=== PATIENT | male | born 1935 | race Caucasian/White ===

== ENCOUNTER 2017-10-26 16:42 | Emergency (ER) | payer OTHER, BC ==
[~2017-10-26] VITALS: Ht 165.1 cm; Wt 79.8 kg
[~2017-10-26 16:42] MED LIST: ASPI1TAB83 PO; CHOL1CAP57 PO; CLON1TAB3 PO; INSDGI SC; LEVO175T3 PO; LOSARTAN PO; NVLGI SC; SIMV80TA5 PO; TAMS0.4C59 PO
[2017-10-26 16:52] VITALS: TEMP 37; Ht 165.1 cm; Wt 79.8 kg
[2017-10-26] MEDS ORDERED: SODIUM CHLORIDE 0.9% 1000ML 1,000 ML IV STA (17:01)
--- NOTE | 2017-10-26 17:05 | EMERGENCY ROOM VISIT NOTE ---
History Report prepared by Kayla: Kalia Trevizo Under the Supervision of: Dr. Andres Curtis M.D. First contact with patient: 16:51 Chief Complaint: HYPOGLYCEMIA Stated Complaint: HYPOGLYCEMIA History of Present Illness The patient is an 81 year old white male with a past medical history of DM, HTN , HLD, hypothyroidism who presents to the ED with a cc of consuming too much short acting insulin 3.5 hours ago. Pt typically takes 15 units of insulin after lunch. He states he was trying to take enough to metabolize his [employer] Patient reports he was driving a car when his symptoms began. He notes he pulled into the [employer] station and then lost consciousness. He notes the next thing he remembers he was in the ambulance. Positive weakness, lightheadedness, unconscious when EMS arrived, taking a baby aspirin once a day, hitting his head. Negative checking blood sugar, changes in diet, changes in medication, back pain. Per EMS, the patient's blood sugar was 20. They note the patient was given Amp D50, and his blood sugar zay to 150. Source of History: patient Onset: 3.5 hours ago Position: other (global) Quality: other (taking too much insulin) Modifying Factors (Relieving): other (Amp D50) Associated Symptoms: + LOC, + weakness, No back pain Note: Associated symptoms: hitting his head, lightheadedness Denies: changes in diet, changes in medication, checking his blood sugar Review of Systems See HPI for pertinent positives and negatives. A total of ten systems were reviewed and were otherwise negative. Past Medical & Surgical Medical Problems: (1) Diabetes mellitus (2) HLD (hyperlipidemia) (3) HTN (hypertension) (4) Hypothyroidism Family History Diabetes mellitus FHx: gallbladder disease Social History Drug Use: none Marital Status: Housing Status: lives with family Current/Historical Medications Scheduled Aspirin (Aspirin), 81 MG PO DAILY Cholecalciferol (Vitamin D3), 1,000 UNITS PO Q2D Insulin Aspart (Novolog), 0 SC ACHS Insulin Glargine (Lantus), 35 UNITS SC QPM Levothyroxine Sodium (Levothyroxine Sodium), 175 MCG PO DAILY Simvastatin (Zocor), 40 MG PO QPM Tamsulosin Hcl (Flomax), 0.4 MG PO DAILY [Hydrochlorothiazide], 1 TAB PO QAM [Losartan], 1 TABLET PO DAILY Scheduled PRN Clonazepam (Klonopin), 1 MG PO HS PRN Allergies Coded Allergies: Lisinopril (Verified Adverse Reaction, Unknown, COUGH, 10/26/17) Physical Exam Vital Signs Date Time Temp Pulse Resp B/P (MAP) Pulse Ox O2 Delivery O2 Flow Rate FiO2 10/26/17 20:28 72 18 144/88 94 10/26/17 19:26 69 16 151/80 97 Room Air 10/26/17 17:50 81 16 139/72 94 Room Air 10/26/17 17:20 98 Room Air 10/26/17 16:52 37.0 68 16 170/83 98 Room Air Physical Exam GENERAL: Awake, alert, well-appearing, NAD HENT: Normocephalic, atraumatic. EYES: Normal conjunctiva. Sclera non-icteric. NECK: Supple. No nuchal rigidity. FROM. No midline c-spine TTP. RESPIRATORY: CTAB, no rhonchi, wheezing, crackles CARDIAC: RRR, no MRG ABDOMEN: Soft, NTND, BS+, Two small abdominal bruises (consistent with prior insulin injection) MSK: No chest wall TTP, no LE edema. Mild left thigh pain. NEURO: CN 2-12 intact, 5/5 upper and lower extremity strength, no dysmetria, no drift, good finger to nose, no sensory deficits. SKIN: No rash or jaundice noted. Medical Decision & Procedures ER Provider Diagnostic Interpretation: Radiology results as stated below per my review and radiologist interpretation: CT SCAN OF THE BRAIN WITHOUT IV CONTRAST CLINICAL HISTORY: Change in mental status. COMPARISON STUDY: No priors. TECHNIQUE: Unenhanced axial CT scan of the brain is performed from the vertex to the skull base. A dose lowering technique was utilized adhering to the principles of ALARA. CT DOSE: 1461.95 mGy.cm FINDINGS: Brain parenchyma: There are age-related involutional changes noting mild subcortical and periventricular microangiopathic change. There is no hemorrhage, mass effect, or evidence of acute territorial ischemia by CT criteria. Palacios-white matter is preserved. No extra-axial fluid collection is seen. Ventricles, sulci, cisterns: Prominent secondary to involutional change. Intracranial vasculature: There is atherosclerotic calcification of the cavernous carotid and vertebral arteries. Calvarium: Unremarkable. Sinuses and mastoids: The visualized paranasal sinuses are clear. The mastoid air cells are well pneumatized. Orbits: The bony orbits are grossly intact. There are bilateral ocular lens implants. IMPRESSION: There is no hemorrhage, mass effect, or evidence of acute territorial ischemia by CT criteria. Electronically signed by: Tanvir Field M.D. 10/26/2017 5:55 PM Dictated Date/Time: 10/26/2017 5:53 PM SINGLE VIEW CHEST CLINICAL HISTORY: Weakness. Change in mental status. FINDINGS: An AP, portable, upright chest radiograph is obtained. No prior studies are available for comparison at the time of dictation. The examination is degraded by portable technique, apical lordotic positioning, and patient rotation. The heart is top normal for projection. There is mild atherosclerotic calcification of the thoracic aorta. The lungs and pleural spaces are clear. No pneumothorax is seen. The skeletal structures are osteopenic. The bony thorax is grossly intact. IMPRESSION: No active disease in the chest. Electronically signed by: Tanvir Field M.D. 10/26/2017 5:26 PM Dictated Date/Time: 10/26/2017 5:25 PM Laboratory Results 10/26/17 17:16 Red Blood Count 4.34, Mean Corpuscular Volume 96.8, Mean Corpuscular Hemoglobin 31.8, Mean Corpuscular Hemoglobin Concent 32.9, Mean Platelet Volume 10.1, Neutrophils (%) (Auto) 67.5, Lymphocytes (%) (Auto) 20.1, Monocytes (%) (Auto) 9.5, Eosinophils (%) (Auto) 2.1, Basophils (%) (Auto) 0.8, Neutrophils # (Auto) 3.50, Lymphocytes # (Auto) 1.04, Monocytes # (Auto) 0.49, Eosinophils # (Auto) 0.11, Basophils # (Auto) 0.04 10/26/17 17:16 Test 10/26/17 16:50 10/26/17 17:16 Bedside Glucose 150 mg/dl (70-99) White Blood Count 5.18 K/uL (4.8-10.8) Red Blood Count 4.34 M/uL (4.7-6.1) Hemoglobin 13.8 g/dL (14.0-18.0) Hematocrit 42.0 % (42-52) Mean Corpuscular Volume 96.8 fL (80-100) Mean Corpuscular Hemoglobin 31.8 pg (25-34) Mean Corpuscular Hemoglobin Concent 32.9 g/dl (32-36) Platelet Count 179 K/uL (130-400) Mean Platelet Volume 10.1 fL (7.4-10.4) Neutrophils (%) (Auto) 67.5 % Lymphocytes (%) (Auto) 20.1 % Monocytes (%) (Auto) 9.5 % Eosinophils (%) (Auto) 2.1 % Basophils (%) (Auto) 0.8 % Neutrophils # (Auto) 3.50 K/uL (1.4-6.5) Lymphocytes # (Auto) 1.04 K/uL (1.2-3.4) Monocytes # (Auto) 0.49 K/uL (0.11-0.59) Eosinophils # (Auto) 0.11 K/uL (0-0.5) Basophils # (Auto) 0.04 K/uL (0-0.2) RDW Standard Deviation 48.1 fL (36.4-46.3) RDW Coefficient of Variation 13.4 % (11.5-14.5) Immature Granulocyte % (Auto) 0.0 % Immature Granulocyte # (Auto) 0.00 K/uL (0.00-0.02) Prothrombin Time 10.6 SECONDS (9.0-12.0) Prothromb Time International Ratio 1.0 (0.9-1.1) Activated Partial Thromboplast Time 24.3 SECONDS (21.0-31.0) Partial Thromboplastin Ratio 0.9 Anion Gap 5.0 mmol/L (3-11) Est Creatinine Clear Calc Drug Dose 32.2 ml/min Estimated GFR () 41.4 Estimated GFR (Non- 35.7 BUN/Creatinine Ratio 25.8 (10-20) Calcium Level 9.0 mg/dl (8.5-10.1) Phosphorus Level 2.9 mg/dl (2.5-4.9) Magnesium Level 2.3 mg/dl (1.8-2.4) Troponin I < 0.015 ng/ml (0-0.045) Thyroid Stimulating Hormone (TSH) 1.810 uIu/ml (0.300-4.500) Laboratory results reviewed by me Medications Administered Medications (Trade) Dose Ordered Sig/Sadie Route Start Time Stop Time Status Last Admin Dose Admin Sodium Chloride 1,000 ml @ 999 mls/hr Q1H1M STAT IV 10/26/17 17:01 10/26/17 18:01 DC 10/26/17 17:01 999 MLS/HR Dextrose (Dextrose 50% 50ML Syringe) 50 ml NOW ONCE IV 10/26/17 18:00 10/26/17 18:01 DC 10/26/17 18:00 50 ML ECG Indication: weakness, syncope Rate (beats per minute): 64 Rhythm: normal sinus Findings: RBBB, left axis deviation, other (Wide QRS, T-wave flattening in V2) Comparison ECG Date: 02/23/13 Change: RBBB and left axis deviation are old. T-wave flattening is new. Patient's electrocardiogram interpreted by me. ED Course 1652: The patient was evaluated in room C06. A complete history and physical exam was performed. 1757: The patient's glucose was 57. He was given Amp D50. 1948: I reevaluated the patient. Discussed results and discharge instructions: he verbalized understanding and agreement. The patient is ready for discharge. Medical Decision The patient is an 81 year old white male with a past medical history of DM, HTN , HLD, hypothyroidism who presents to the ED with a cc of consuming too much short acting insulin 3.5 hours ago. Differential diagnosis: Etiologies such as vasovagal event, infection, hypoglycemia, electrolyte abnormalities, cardiac sources, intracerebral event, toxicologic, neurologic, as well as others were entertained. Patient was seen and evaluated the bedside. Patient reportedly was slumped over in his car after eating at [employer] and administering his regular subcutaneous insulin. Patient states he gave himself partially 15 units subcutaneous. On scene per nursing report they stated that EMS reported a blood sugar of 20. He was given 1 amp of D50. Repeat blood sugars 150. Patient denies any somatic complaints with the exception of a little bit of left eye pain. There is no area of ecchymosis and no shortening and the patient is neuro intact. Patient has a nonfocal neurologic exam but given the patient's syncope which is most likely related to his hypoglycemia additional workup was done at this time. Patient does take a baby aspirin. Patient did have blood work, EKG, troponin, and CT of the brain. Patient's blood work was fairly unremarkable. Patient had a sugar greater than 100. Patient's EKG nonischemic and no overt arrhythmia. Troponin negative. CT of the brain negative. Patient was feeling unwell again had a repeat sugar that was less than 60. Patient was given an amp of D50 in addition to a sandwich and some or shoes. Patient did have a repeat blood sugar that was drawn which showed it was again greater than 100. Patient was feeling well. I did discuss with patient that he does need to follow-up with his PCP at the [facility] for further teaching instructions with regards insulin as he cannot just to the field. Patient was told he should check his sugars throughout the day and especially pre-meals prior to administering his insulin. Patient was deemed suitable for outpatient follow-up and treatment at this time. Patient was given strict follow -up, discharge, and return precautions. All questions were answered. Patient was deemed suitable for outpatient follow-up at this time. Patient agreed with the plan of care and was safely discharged home. The chart was completed utilizing [employer] voice recognition software. Grammatical errors, random word insertions, pronoun errors, and incomplete sentences are an occasional consequence of this system due to software limitations, ambient noise, and hardware issues. Any formal questions or concerns about the content, text, or information contained within the body of this dictation should be directly addressed to the physician for clarification. Medication Reconcilliation Current Medication List: was personally reviewed by me Blood Pressure Screening Patient's blood pressure: Elevated blood pressure Blood pressure disposition: Elevated BP felt to be situational Impression Primary Impression: Hypoglycemia Additional Impression: Overdose Scribe Attestation The scribe's documentation has been prepared under my direction and personally reviewed by me in its entirety. I confirm that the note above accurately reflects all work, treatment, procedures, and medical decision making performed by me. Departure Information Dispostion Home / Self-Care Referrals MALA DANIEL PA-C (PCP) Forms HOME CARE DOCUMENTATION FORM, IMPORTANT VISIT INFORMATION, WORK / SCHOOL INSTRUCTIONS Patient Instructions Blood Sugar Check, Diabetes Type 1 Use Insulin Ch, Hypoglycemia, [facility] Additional Instructions Please return to the emergency department if you have worsening or recurrent symptoms not amenable to at-home treatment. Please call for a follow-up appointment with her primary care physician. Please take your medications as prescribed. If you have other concerns and/or complaints please feel free to also call your primary care physician's office or return the ED for further evaluation, management, and treatment. Please make sure to check your sugars before administering her insulin. Please follow-up with your primary care physician for further instruction and teaching with regard to your insulin administration. Take your medications as prescribed. You have been examined and treated today on an emergency basis only. This is not a substitute for, or an effort to provide, complete comprehensive medical care. It is impossible to recognize and treat all injuries or illnesses in a single emergency department visit. It is therefore important that you follow up closely with [facility], your PCP, and/or your specialist(s). Call as soon as possible for an appointment. Thank you for your time and consideration. I look forward to speaking with you again soon. Please don't hesitate to call us if you have any questions. Problem Qualifiers Additional Impression: Overdose Encounter type: initial encounter Injury intent: accidental or unintentional Qualified Codes: T50.901A - Poisoning by unspecified drugs, medicaments and biological substances, accidental (unintentional), initial encounter
[2017-10-26 17:20] VITALS: O2SAT 98
--- NOTE | 2017-10-26 17:27 | DIAGNOSTIC IMAGING REPORT ---
SINGLE VIEW CHEST CLINICAL HISTORY: Weakness. Change in mental status. FINDINGS: An AP, portable, upright chest radiograph is obtained. No prior studies are available for comparison at the time of dictation. The examination is degraded by portable technique, apical lordotic positioning, and patient rotation. The heart is top normal for projection. There is mild atherosclerotic calcification of the thoracic aorta. The lungs and pleural spaces are clear. No pneumothorax is seen. The skeletal structures are osteopenic. The bony thorax is grossly intact. IMPRESSION: No active disease in the chest. Electronically signed by: Tanvir Field M.D. 10/26/2017 5:26 PM Dictated Date/Time: 10/26/2017 5:25 PM
[2017-10-26] MEDS ORDERED: HYDROCHLOROTHIAZIDE PO (17:28)
[2017-10-26 17:29] LABS: BASO % 0.8 %; BASO ABS # 0.04 K/uL (0-0.2); EOS % 2.1 %; EOS ABS # 0.11 K/uL (0-0.5); HEMOGLOBIN 13.8 g/dL (14.0-18.0); LYMPH % 20.1 %; LYMPH ABS # 1.04 K/uL (1.2-3.4); MEAN CELL VOLUME 96.8 fL (80-100); MEAN CORPUSCULAR HEMOGLOBIN 31.8 pg (25-34); MEAN CORPUSCULAR HGB CONC 32.9 g/dl (32-36); MEAN PLATELET VOLUME 10.1 fL (7.4-10.4); MONO % 9.5 %; MONO ABS # 0.49 K/uL (0.11-0.59); NEUT % 67.5 %; PLATELET COUNT 179 K/uL (130-400); RED CELL DISTRIBUTION WIDTH CV 13.4 % (11.5-14.5); RED CELL DISTRIBUTION WIDTH SD 48.1 fL (36.4-46.3); WHITE BLOOD COUNT 5.18 K/uL (4.8-10.8)
[2017-10-26 17:38] LABS: PTT PATIENT 24.3 SECONDS (21.0-31.0)
[2017-10-26 17:48] LABS: BLOOD UREA NITROGEN 45 mg/dl (7-18); CARBON DIOXIDE 28 mmol/L (21-32); CREATININE 1.75 mg/dl (0.60-1.40); GLUCOSE 57 mg/dl (70-99); POTASSIUM 3.5 mmol/L (3.5-5.1); SODIUM 136 mmol/L (136-145)
--- NOTE | 2017-10-26 17:57 | DIAGNOSTIC IMAGING REPORT ---
CT SCAN OF THE BRAIN WITHOUT IV CONTRAST CLINICAL HISTORY: Change in mental status. COMPARISON STUDY: No priors. TECHNIQUE: Unenhanced axial CT scan of the brain is performed from the vertex to the skull base. A dose lowering technique was utilized adhering to the principles of ALARA. CT DOSE: 1461.95 mGy.cm FINDINGS: Brain parenchyma: There are age-related involutional changes noting mild subcortical and periventricular microangiopathic change. There is no hemorrhage, mass effect, or evidence of acute territorial ischemia by CT criteria. Palacios-white matter is preserved. No extra-axial fluid collection is seen. Ventricles, sulci, cisterns: Prominent secondary to involutional change. Intracranial vasculature: There is atherosclerotic calcification of the cavernous carotid and vertebral arteries. Calvarium: Unremarkable. Sinuses and mastoids: The visualized paranasal sinuses are clear. The mastoid air cells are well pneumatized. Orbits: The bony orbits are grossly intact. There are bilateral ocular lens implants. IMPRESSION: There is no hemorrhage, mass effect, or evidence of acute territorial ischemia by CT criteria. Electronically signed by: Tanvir Field M.D. 10/26/2017 5:55 PM Dictated Date/Time: 10/26/2017 5:53 PM
[2017-10-26] MEDS ORDERED: DEXTROSE 50% 50 ML SYR ONE (17:58)
[2017-10-26 17:59] LABS: PHOSPHORUS 2.9 mg/dl (2.5-4.9)
[2017-10-26] MEDS ORDERED: DEXTROSE 50% 50 ML SYR IV ONE (18:00)
[2017-10-26 20:28] VITALS: BP 144/88; PULSE 72; O2SAT 94
== END 2017-10-26 20:30 | disposition home or self-care (01) ==
LOC: EDBD 16:42 → C.EDC 16:43
DX: E10.649 Type 1 diabetes mellitus with hypoglycemia without coma (principal); T38.3X1A Poisoning by insulin and oral hypoglycemic [antidiabetic] drugs, accidental (unintentional), initial encounter; X58.XXXA Exposure to other specified factors, initial encounter; I10 Essential (primary) hypertension; E78.5 Hyperlipidemia, unspecified; E03.9 Hypothyroidism, unspecified; Z79.82 Long term (current) use of aspirin; Z79.4 Long term (current) use of insulin; Z83.3 Family history of diabetes mellitus; I45.10 Unspecified right bundle-branch block; R94.31 Abnormal electrocardiogram [ECG] [EKG]

== ENCOUNTER 2024-06-24 22:29 | Inpatient (IN) ==
[2024-06-24 23:12] LABS: Basophils # (auto) 0.01 K/uL (0.00-0.20); Basophils % (auto) 0.1 %; Hematocrit (blood only) 41.8 % (42.0-52.0); Hemoglobin 13.9 g/dl (14.0-18.0); Immature Granulocytes # (auto) 0.02 K/uL (0.01-0.20); Immature Granulocytes % (auto) 0.2 %; Lymphocytes # (auto) 0.41 K/uL (1.20-3.40); Mean Corpuscular Hgb Conc 33.3 g/dL (32.0-36.0); Mean Corpuscular Volume 93.3 fL (80.0-100.0); Mean Platelet Volume 10.9 fL (9.4-12.4); Monocytes # (auto) 0.55 K/uL (0.11-0.59); Monocytes % (auto) 6.7 %; Neutrophils # (auto) 7.23 K/uL (1.40-6.50); Platelet Count 172 K/uL (130-400); RDW Coefficient of Variation 13.1 % (11.5-14.5); RDW Standard Deviation 44.8 fL (36.4-46.3); Red Blood Count 4.48 M/uL (4.70-6.10); White Blood Count 8.22 K/ul (4.8-10.8)
--- NOTE | 2024-06-24 23:13 | Emergency Department Note ---
History of Present Illness General Chief complaint: Testicular Pain Stated complaint: HERNIA, PELVIC/TESTICULAR PAIN/RT SIDE Time Seen by Provider: 06/24/24 22:43 History of Present Illness This 88-year-old male that sees the MS presents ER complaining of right lower abdominal pain concerning he has a hernia. Patient was told that he had a hernia from his CAT scan done at [facility]. Patient denies chest pain, dyspnea, vomiting, diarrhea, fevers, trauma to the area. No penile pain. No testicular pain. Home Medications Medication Instructions Recorded Confirmed Type ASPIRIN 81 mg PO DAILY ##0 02/23/13 History CHOLECALCIFEROL (VITAMIN D3) 1,000 unit PO Q2D ##0 02/23/13 History Clonazepam (Klonopin) 1 mg PO HS PRN #0 tabs 02/23/13 History INSULIN ASPART (NOVOLOG) 0 SC ACHS #0 BTLS 02/23/13 History Insulin Glargine (Lantus) 35 unit SC QPM #0 vials 02/23/13 History LEVOTHYROXINE SODIUM 175 mcg PO DAILY ##0 02/23/13 History LOSARTAN 1 tab PO DAILY ##0 02/23/13 History SIMVASTATIN (ZOCOR) 40 mg PO QPM #0 tabs 02/23/13 History TAMSULOSIN HCL (FLOMAX) 0.4 mg PO DAILY #0 caps 02/23/13 History HYDROCHLOROTHIAZIDE 1 tab PO QAM ##0 10/26/17 History Allergies Allergy/AdvReac Type Severity Reaction Status Date / Time lisinopril AdvReac Unknown COUGH Verified 10/26/17 17:24 Past Med/Surg History Problem List (Updated 06/25/24 @ 05:59 by Ignacia Azul PA-C) Abdominal pain, acute (Acute) Inguinal hernia Free intraperitoneal air (Acute) Diabetes (Chronic) HTN (hypertension) (Chronic) HLD (hyperlipidemia) (Chronic) Hypothyroidism (Chronic) Family History Other Diabetes Gallbladder disease Social History Smoking Status: Former smoker Preferred Language: Indonesian Feels Safe at Home: Yes Review of Systems A total of 10 systems reviewed and were otherwise negative Physical Exam Vital Signs Vital Signs - 24 hr 06/24/24 22:37 06/24/24 23:03 06/24/24 23:57 Temperature 37.6 C H Temperature Source Temporal Artery Scan Pulse Rate 115 H Pulse Rate [Right] 100 H Pulse Rhythm [Right] Regular Pulse Strength [Right] Normal Respiratory Rate 16 24 Respiratory Effort / Characteristics Non-Labored Spontaneous Respiratory Depth Normal Respiratory Pattern Blood Pressure 104/65 Blood Pressure [Left Arm] 172/82 H Blood Pressure Mean 78 Blood Pressure Mean [Left Arm] 112 Blood Pressure Position [Left Arm] Lying Pulse Oximetry 94 97 95 Oxygen Delivery Method Room Air Room Air Room Air Sepsis Recent Fever Within 48 Hours No Sepsis New/Unexplained Change in Mental Status No Sepsis Action Taken by Nursing No Action Required 06/25/24 01:00 06/25/24 01:05 06/25/24 05:00 Temperature Temperature Source Pulse Rate 112 H 114 H Pulse Rate [Right] 109 H Pulse Rhythm [Right] Regular Pulse Strength [Right] Normal Respiratory Rate Respiratory Effort / Characteristics Non-Labored Spontaneous Respiratory Depth Normal Respiratory Pattern Regular Blood Pressure Blood Pressure [Left Arm] Blood Pressure Mean Blood Pressure Mean [Left Arm] Blood Pressure Position [Left Arm] Lying Pulse Oximetry 94 Oxygen Delivery Method Room Air Sepsis Recent Fever Within 48 Hours Sepsis New/Unexplained Change in Mental Status Sepsis Action Taken by Nursing 06/25/24 05:00 Temperature Temperature Source Pulse Rate Pulse Rate [Right] 92 H Pulse Rhythm [Right] Regular Pulse Strength [Right] Normal Respiratory Rate 20 Respiratory Effort / Characteristics Non-Labored Spontaneous Respiratory Depth Normal Respiratory Pattern Regular Blood Pressure Blood Pressure [Left Arm] 175/92 H Blood Pressure Mean Blood Pressure Mean [Left Arm] 119 Blood Pressure Position [Left Arm] Lying Pulse Oximetry 97 Oxygen Delivery Method Room Air Sepsis Recent Fever Within 48 Hours Sepsis New/Unexplained Change in Mental Status Sepsis Action Taken by Nursing VITALS: Vitals are noted on the nurse's note and reviewed by myself. Vital signs stable. GENERAL: Pleasant patient with son present, in no acute distress, nondiaphoretic, well-developed well-nourished. SKIN: Capillary reflex less than 2 seconds. HEENT: Normocephalic. PERRLA. EOMI. Nares patent. Mucous membranes moist. Neck is supple without nuchal rigidity. HEART: Regular rate and rhythm LUNGS: Clear to auscultation bilaterally without wheezes, rales or rhonchi. No retractions or accessory muscle use. ABDOMEN: Positive bowel sounds x 4. Normal tympanic percussion. Soft, tender to palpation right lower quadrant, without masses or organomegaly. Cancino sign negative. No guarding or rebound tenderness. no CVA tenderness exam: Normal male genitalia, testicles nontender. Flare Worker present of Alphonso the nurse MUSCULOSKELETAL: No gross musculoskeletal defects. NEURO: Patient was alert and oriented to person place and time. No focal neurological deficits. Course Administered Medications Fentanyl Citrate (Fentanyl Citrate Pf 100 Mcg/2 Ml Vial) 50 mcg IV Q15M PRN PRN Reason: Pain Stop: 07/09/24 03:55 Last Admin: 06/25/24 04:55 Dose: 50 mcg Documented By: BRITTANY Sodium Chloride (Nss) 1,000 mls @ 100 mls/hr IV .Q10H CLEMENTE Stop: 07/25/24 04:29 Last Admin: 06/25/24 04:58 Dose: 100 mls/hr Documented By: BRITTANY Discontinued Medications Sodium Chloride (Nss) 500 mls @ 999 mls/hr IV .Q31M ONE Stop: 06/24/24 23:42 Last Infusion: 06/25/24 00:17 Dose: Infused Documented By: Admin: 06/24/24 23:40 Dose: 999 mls/hr Documented By: BRITTANY Piperacillin Sod/Tazobactam Sod (Zosyn) 4.5 gm in 100 mls @ 200 mls/hr IV NOW ONE Stop: 06/25/24 04:25 Last Infusion: 06/25/24 05:52 Dose: Infused Documented By: Admin: 06/25/24 05:03 Dose: 200 mls/hr Documented By: BRITTANY Sodium Chloride (Nss) 1,000 mls @ 999 mls/hr IV .Q1H1M ONE Stop: 06/25/24 04:56 Last Admin: 06/25/24 04:57 Dose: 999 mls/hr Documented By: BRITTANY Ioversol (Optiray 320 100ml) 93 ml IV ONCE ONE Stop: 06/24/24 23:45 Last Admin: 06/24/24 23:44 Dose: 93 ml Documented By: JALEEL Medical Decision Making Medical Records Attestation: I reviewed the patient's medical records. Home Medications Current Medication List: was personally reviewed by me Laboratory Data Attestation: I reviewed the patient's lab results. 06/24/24 22:55 06/24/24 22:55 Lab Results 06/24/24 06/24/24 06/25/24 Range/Units 22:55 23:02 00:24 WBC 8.22 (4.8-10.8) K/ul RBC 4.48 L (4.70-6.10) M/uL Hgb 13.9 L (14.0-18.0) g/dl POC Hgb 14.6 (14.0-18.0) g/dl Hct 41.8 L (42.0-52.0) % POC Hct 43 (42-52) % MCV 93.3 (80.0-100.0) fL MCH 31.0 (25.0-34.0) pg MCHC 33.3 (32.0-36.0) g/dL RDW Std Deviation 44.8 (36.4-46.3) fL RDW Coeff of Kalli 13.1 (11.5-14.5) % Plt Count 172 (130-400) K/uL MPV 10.9 (9.4-12.4) fL Immature Gran % (Auto) 0.2 % Neut % (Auto) 88.0 % Lymph % (Auto) 5.0 % Coal % (Auto) 6.7 % Eos % (Auto) 0.0 % Baso % (Auto) 0.1 % Neut # (Auto) 7.23 H (1.40-6.50) K/uL Lymph # (Auto) 0.41 L (1.20-3.40) K/uL Coal # (Auto) 0.55 (0.11-0.59) K/uL Eos # (Auto) 0.00 (0.00-0.50) K/uL Baso # (Auto) 0.01 (0.00-0.20) K/uL Immature Gran # (Auto) 0.02 (0.01-0.20) K/uL POC Sodium 138 (135-144) mmol/L Sodium 138 (136-145) mmol/L POC Potassium 4.2 (3.3-5.0) mmol/L Potassium 4.3 (3.5-5.1) mmol/L POC Chloride 103 (101-112) mmol/L Chloride 103 (98-107) mmol/L Carbon Dioxide 26 (21-32) mmol/L POC Total CO2 26 (24-31) mmol/L Anion Gap 9 (3-11) POC Anion Gap 14.0 L (16-25) mmol/L POC BUN 31 H (7-18) mg/dl BUN 30 H (6-23) mg/dl Creatinine 1.66 H (0.6-1.4) mg/dl POC Creatinine 1.7 H (0.6-1.3) mg/dl Est Cr Clr Drug Dosing 24.9 ml/min Est GFR ( Amer) 42.0 ml/min Est GFR (Non-Af Amer) 36.3 ml/min BUN/Creatinine Ratio 18.1 (10-20) Glucose 150 H (70-99(Fasting)) mg/dl POC Glucose (other) 150 H (70-99) mg/dl Lactate (0.4-2.0) mmol/L Calcium 9.6 (8.6-10.3) mg/dl POC Ioniz Calcium Sascha 1.21 (1.12-1.32) mmol/l Total Bilirubin 0.5 (0.2-1.0) mg/dl AST 18 (13-39) U/L ALT 13 (7-52) U/L Alkaline Phosphatase 52 (34-104) U/L Total Protein 6.7 (6.0-8.3) gm/dl Albumin 4.1 (3.4-5.0) gm/dl Globulin 2.6 (2.5-4.0) gm/dl Albumin/Globulin Ratio 1.6 (0.9-2) Lipase 57 (11-82) U/L Urine Color Yellow Urine Appearance Clear (Clear) Urine pH 5.5 (4.5-7.5) Ur Specific [place] 1.033 H (1.000-1.030) Urine Protein 1+ H (Negative) Urine Glucose (UA) 3+ H (Negative) Urine Ketones Trace H (Negative) Urine Blood Negative (Negative) Urine Nitrite Negative (Negative) Urine Bilirubin Negative (Negative) Urine Urobilinogen Negative (Negative) Ur Leukocyte Esterase Negative (Negative) Urine WBC (Auto) 0-5 (0-5) /hpf Urine RBC (Auto) 0-2 (0-2) /hpf U Hyaline Cast (Auto) 0-2 (0-2) /lpf U Epithel Cells (Auto) 0-2 (0-2) /hpf Urine Bacteria (Auto) None Seen (None Seen) 06/25/24 Range/Units 01:02 WBC (4.8-10.8) K/ul RBC (4.70-6.10) M/uL Hgb (14.0-18.0) g/dl POC Hgb (14.0-18.0) g/dl Hct (42.0-52.0) % POC Hct (42-52) % MCV (80.0-100.0) fL MCH (25.0-34.0) pg MCHC (32.0-36.0) g/dL RDW Std Deviation (36.4-46.3) fL RDW Coeff of Kalli (11.5-14.5) % Plt Count (130-400) K/uL MPV (9.4-12.4) fL Immature Gran % (Auto) % Neut % (Auto) % Lymph % (Auto) % Coal % (Auto) % Eos % (Auto) % Baso % (Auto) % Neut # (Auto) (1.40-6.50) K/uL Lymph # (Auto) (1.20-3.40) K/uL Coal # (Auto) (0.11-0.59) K/uL Eos # (Auto) (0.00-0.50) K/uL Baso # (Auto) (0.00-0.20) K/uL Immature Gran # (Auto) (0.01-0.20) K/uL POC Sodium (135-144) mmol/L Sodium (136-145) mmol/L POC Potassium (3.3-5.0) mmol/L Potassium (3.5-5.1) mmol/L POC Chloride (101-112) mmol/L Chloride (98-107) mmol/L Carbon Dioxide (21-32) mmol/L POC Total CO2 (24-31) mmol/L Anion Gap (3-11) POC Anion Gap (16-25) mmol/L POC BUN (7-18) mg/dl BUN (6-23) mg/dl Creatinine (0.6-1.4) mg/dl POC Creatinine (0.6-1.3) mg/dl Est Cr Clr Drug Dosing ml/min Est GFR ( Amer) ml/min Est GFR (Non-Af Amer) ml/min BUN/Creatinine Ratio (10-20) Glucose (70-99(Fasting)) mg/dl POC Glucose (other) (70-99) mg/dl Lactate 1.0 (0.4-2.0) mmol/L Calcium (8.6-10.3) mg/dl POC Ioniz Calcium Sascha (1.12-1.32) mmol/l Total Bilirubin (0.2-1.0) mg/dl AST (13-39) U/L ALT (7-52) U/L Alkaline Phosphatase (34-104) U/L Total Protein (6.0-8.3) gm/dl Albumin (3.4-5.0) gm/dl Globulin (2.5-4.0) gm/dl Albumin/Globulin Ratio (0.9-2) Lipase (11-82) U/L Urine Color Urine Appearance (Clear) Urine pH (4.5-7.5) Ur Specific [place] (1.000-1.030) Urine Protein (Negative) Urine Glucose (UA) (Negative) Urine Ketones (Negative) Urine Blood (Negative) Urine Nitrite (Negative) Urine Bilirubin (Negative) Urine Urobilinogen (Negative) Ur Leukocyte Esterase (Negative) Urine WBC (Auto) (0-5) /hpf Urine RBC (Auto) (0-2) /hpf U Hyaline Cast (Auto) (0-2) /lpf U Epithel Cells (Auto) (0-2) /hpf Urine Bacteria (Auto) (None Seen) Imaging Data Attestation: I personally reviewed and interpreted this imaging study as follows: Radiologist's Impression: Abdomen/Pelvis CT 06/24/24 22:51 CR Exam(s): CT ABDOMEN + PELVIS With Contrast IV Amt: 93 ml optiray 320 EXAM: CT Abdomen and Pelvis With Intravenous Contrast CLINICAL HISTORY: Reason for exam: lower abd pain, hernia. TECHNIQUE: Axial computed tomography images of the abdomen and pelvis with intravenous contrast. CTDI is 8.88 mGy and DLP is 424.45 mGy-cm. Automated exposure control was utilized for the study. A dose lowering technique was utilized adhering to the principles of ALARA. CONTRAST: Patient received 93 ml optiray 320 of IV contrast COMPARISON: No relevant prior studies available. FINDINGS: Lung bases: No consolidation. The heart contains coronary artery calcifications. ABDOMEN: Liver: No mass. Gallbladder and bile ducts: No calcified stones. No ductal dilation. Pancreas: No mass. No ductal dilation. Spleen: No splenomegaly. Adrenals: No mass. Kidneys and ureters: No hydronephrosis. There is a 1.7 cm lucency noted in the right kidney. Stomach and bowel: The stomach is decompressed. The colon is distended containing air and stool. There are diverticula present on the colon. No significant inflammatory changes are seen. There is a right inguinal hernia containing a loop of small bowel. There are some inflammatory changes in the hernia sac. No evidence of bowel obstruction. PELVIS: Appendix: No findings to suggest acute appendicitis. Bladder: There is thickening of the urinary bladder wall.. Reproductive: The prostate gland is enlarged.. ABDOMEN and PELVIS: Intraperitoneal space: There is a small amount of free intraperitoneal air noted.. No significant fluid collection. Bones/joints: There are degenerative changes in the spine.. Soft tissues: There are areas of increased density noted in the subcutaneous tissues of the anterior abdominal wall. This is of uncertain etiology. Vasculature: There are extensive atherosclerotic changes. No abdominal aortic aneurysm. Lymph nodes: No enlarged lymph nodes. IMPRESSION: There is a small amount of free intraperitoneal air. This may be related to a perforated viscus. There is a right inguinal hernia containing a loop of small bowel. There are some inflammatory changes in the hernia sac. This suggests incarceration. No evidence of bowel obstruction. Diverticulosis. There is thickening of the urinary bladder wall. This may be due to hypertrophy. Cannot exclude a process such as cystitis. Prostate gland is enlarged. There is a possible right renal cyst. Communications: Call Doctor Pneumoperitoneum, new or unexpected Electronically signed by: Vishnu Liz MD 06/25/24 03:49 AM [facility] Narrative Prior records/ancillary studies reviewed. Triage Nursing notes reviewed. Additional history obtained from family. The patient's history was concerning for abdominal pain. Differential diagnosis: Etiologies such as hernia, appendicitis, diverticulitis, PUD, biliary pathology, UTI, pancreatitis, obstruction, mesenteric ischemia, aortic pathology, infections, inflammatory bowel disease, renal colic, as well as others were entertained. Physical examination findings: As above. ER treatment provided: An order was placed for continuous cardiac monitoring. The monitor shows a rate of 60-100 with a sinus rhythm per my Independent interpretation. IV fluids, patient declined pain meds Zosyn was ordered On reassessment the patient felt better. Diagnostics interpreted by me: The labs Independently Interpreted by myself revealed negative urine No worrisome leukocytosis, mild anemia Negative lactic Imaging studies: CT was reviewed and read by radiology as above Consultation: A consultation was placed with the surgical midlevel Charbel. The case was discussed and diagnostics were reviewed. The patient was evaluated in the ER for further treatment. He recommends antibiotics and medical admission. Medicine is consulted and the case is discussed. Patient was admitted to the medical service. Exam and history seem consistent with abdominal pain with free air appreciated on CAT scan. Surgery was consulted and recommends medical admission. Medicine was consulted and accepts admission of the patient. Patient was started antibiotics. No worrisome leukocytosis, stable H&H, negative urine. Patient is agreeable treatment plan of admission. By the evaluation outlined above emergent etiologies such as appendicitis, diverticulitis, PUD, biliary pathology, UTI, pancreatitis, obstruction, mesenteric ischemia, aortic pathology, inflammatory bowel disease, renal colic, as well as others were deemed relatively unlikely. The pt informed about the findings as listed above. All questions were answered and pleased with the treatment. The chart was completed utilizing [facility] Speech voice recognition software. Grammatical errors, random word insertions, pronoun errors, and incomplete sentences are an occassional consequence of this system due to software limitations, ambient noise, and hardware issues. Any formal questions or concerns about the content, text, or information contained within the body of this dictation should be directly addressed to the physician server assistant for clarification. Impression & Plan Free intraperitoneal air, Abdominal pain, acute Discharge Plan Visit Data Chief Complaint: Testicular Pain Stated Complaint: HERNIA, PELVIC/TESTICULAR PAIN/RT SIDE ED Provider: Acacia Gardner ED Midlevel Provider: Ignacia Azul Discharge Problem: Free intraperitoneal air, Abdominal pain, acute Patient Disposition: Admitted As Inpatient Condition: Fair Forms Stand Alone Forms: [facility] [employer] Prescriptions Prescriptions: No Action ASPIRIN 81 MG tablet 81 mg PO DAILY Qty: 0 CHOLECALCIFEROL (VITAMIN D3) 1,000 UNIT capsule 1,000 unit PO Q2D Qty: 0 Clonazepam (Klonopin) 1 MG tablet 1 mg PO HS PRNQty: 0 LEVOTHYROXINE SODIUM 175 MCG tablet 175 mcg PO DAILY Qty: 0 LOSARTAN 1 tab PO DAILY Qty: 0 Patient Comments: UNKNOWN DOSE SIMVASTATIN (ZOCOR) 80 MG tablet 40 mg PO QPM Qty: 0 TAMSULOSIN HCL (FLOMAX) 0.4 MG capsule 0.4 mg PO DAILY Qty: 0 INSULIN ASPART (NOVOLOG) 100 UNIT/ INJECTION 0 SC ACHS Qty: 0 Patient Comments: SLIDING SCALE Insulin Glargine (Lantus) VIAL 35 unit SC QPM Qty: 0 HYDROCHLOROTHIAZIDE 1 tab PO QAM Qty: 0 Referrals Referrals: PCP,NO [Physician] -
[2024-06-24 23:15] LABS: iSTAT Creatinine 1.7 mg/dl (0.6-1.3); iSTAT Hemoglobin 14.6 g/dl (14.0-18.0); iSTAT Ionized Calcium 1.21 mmol/l (1.12-1.32); iSTAT Potassium 4.2 mmol/L (3.3-5.0)
[2024-06-24 23:25] LABS: Albumin Globulin Ratio 1.6 (0.9-2); Albumin Level 4.1 gm/dl (3.4-5.0); BUN Creatinine Ratio 18.1 (10-20); Bilirubin,Total 0.5 mg/dl (0.2-1.0); Calcium 9.6 mg/dl (8.6-10.3); Creatinine Clr Calc Pharmacy 24.9 ml/min; Est GFR (Non-African American) 36.3 ml/min; Globulin 2.6 gm/dl (2.5-4.0); Potassium 4.3 mmol/L (3.5-5.1); Total Protein 6.7 gm/dl (6.0-8.3)
[2024-06-24] MEDS: SODIUM CHLORIDE 0.9% 500 ML IV ONE (23:40)
[2024-06-24] MEDS: OPTIRAY 320 100ml IV ONE (23:44)
[2024-06-25 01:27] LABS: Appearance Urine Clear (Clear); Bacteria Urine Automated None Seen (None Seen); Bilirubin Urine Negative (Negative); Blood Urine Negative (Negative); Cast Urine Automated 0-2 /lpf (0-2); Color Urine Yellow; Epithelial Cell Urine Auto 0-2 /hpf (0-2); Glucose Urine UA 3+ (Negative); Ketones Urine Trace (Negative); Leukocyte Esterase Urine Negative (Negative); Nitrite Urine Negative (Negative); Protein Urine 1+ (Negative); RBC Urine Automated 0-2 /hpf (0-2); Specific Gravity Urine 1.033 (1.000-1.030); Urobilinogen Urine Negative (Negative); WBC Urine Automated 0-5 /hpf (0-5); pH Urine 5.5 (4.5-7.5)
--- NOTE | 2024-06-25 03:49 | CT Scan Report ---
Exam(s): CT ABDOMEN + PELVIS With Contrast IV Amt: 93 ml optiray 320 EXAM: CT Abdomen and Pelvis With Intravenous Contrast CLINICAL HISTORY: Reason for exam: lower abd pain, hernia. TECHNIQUE: Axial computed tomography images of the abdomen and pelvis with intravenous contrast. CTDI is 8.88 mGy and DLP is 424.45 mGy-cm. Automated exposure control was utilized for the study. A dose lowering technique was utilized adhering to the principles of ALARA. CONTRAST: Patient received 93 ml optiray 320 of IV contrast COMPARISON: No relevant prior studies available. FINDINGS: Lung bases: No consolidation. The heart contains coronary artery calcifications. ABDOMEN: Liver: No mass. Gallbladder and bile ducts: No calcified stones. No ductal dilation. Pancreas: No mass. No ductal dilation. Spleen: No splenomegaly. Adrenals: No mass. Kidneys and ureters: No hydronephrosis. There is a 1.7 cm lucency noted in the right kidney. Stomach and bowel: The stomach is decompressed. The colon is distended containing air and stool. There are diverticula present on the colon. No significant inflammatory changes are seen. There is a right inguinal hernia containing a loop of small bowel. There are some inflammatory changes in the hernia sac. No evidence of bowel obstruction. PELVIS: Appendix: No findings to suggest acute appendicitis. Bladder: There is thickening of the urinary bladder wall.. Reproductive: The prostate gland is enlarged.. ABDOMEN and PELVIS: Intraperitoneal space: There is a small amount of free intraperitoneal air noted.. No significant fluid collection. Bones/joints: There are degenerative changes in the spine.. Soft tissues: There are areas of increased density noted in the subcutaneous tissues of the anterior abdominal wall. This is of uncertain etiology. Vasculature: There are extensive atherosclerotic changes. No abdominal aortic aneurysm. Lymph nodes: No enlarged lymph nodes. IMPRESSION: There is a small amount of free intraperitoneal air. This may be related to a perforated viscus. There is a right inguinal hernia containing a loop of small bowel. There are some inflammatory changes in the hernia sac. This suggests incarceration. No evidence of bowel obstruction. Diverticulosis. There is thickening of the urinary bladder wall. This may be due to hypertrophy. Cannot exclude a process such as cystitis. Prostate gland is enlarged. There is a possible right renal cyst. Communications: Call Doctor Pneumoperitoneum, new or unexpected Electronically signed by: Vishnu Liz MD 06/25/24 03:49 AM
--- NOTE | 2024-06-25 04:23 | Surgery Consultation ---
Date of Consultation June 25, 2024 Assessment & Plan (1) Free intraperitoneal air: I discussed with the treating clinician the emergency department with feel the patient should be admitted on the medical service. From surgical obstructive we recommend the following: N.p.o. status should be implemented IV fluids to be provided for hydration Antibiotics to be administered. He is already received Zosyn in the emergency department this should continue Serial labs to be followed Analgesics to be provided as needed Antiemetics to be provided as needed At the present time the patient is nontoxic-appearing. He does have a slight tachycardia but he is not hypotensive. He does have a slight fever of 37.6. His lactic acid level is not elevated. I discussed the case and CT scan findings with my attending physician Dr. Siddiqi. She feels we should implement the above-noted plan and the patient be reevaluated later this morning and a determination will be made if patient will require surgical intervention. I did discuss with the patient's son who was present at bedside as well. (2) Inguinal hernia: Supervising Physician Co-Signing Physician Notes This case was discussed with the surgical PA and I have seen and examined this patient. I had a long discussion with the patient and his son, Adrien. The patient is nontoxic-appearing and asymptomatic at the time of my evaluation. The right inguinal hernia has reduced on its own and is nontender at my evaluation. The patient notes his pain is suddenly gone. He denies any evidence for bowel obstruction throughout this process. Has had no nausea vomiting has continued to have bowel function. We discussed the questionable perforation in his abdomen. The patient knows he is on Ozempic. After reviewing the CT he does have quite a large stool burden within his colon as well as significant diverticular disease. Of note the patient is also on Ozempic which he states he has been on for roughly 2 years. I am not sure if he truly has a perforation and by the minimal small specks of air noted, if this was a perforation, it likely has sealed itself and healed old for not requiring surgical intervention. At this time I am recommending the patient continue with IV antibiotics, follow- up in the a.m. with a.m. labs as well. He is recommended to have his hernia repaired at some point. His repair options will be limited in the face of a que stionable perforation and/or infection and there is no emergency to the procedure at this point in time. Surgery will continue to follow. History of Present Illness Reason for Consultation: Abdominal pain History of Present Illness Is an 80-year-old male who presented to the emergency department secondary to abdominal pain. Patient notes that he has had the pain for approximately 5 to 7 days. He notes that the pain is mostly in the right lower quadrant of his abdomen/right groin area where he has a known right inguinal hernia. He denies any radiation of the pain. He notes that the pain is worse with palpation of the affected area. He denies any nausea or vomiting. He denies any fevers, shakes, or chills. He notes that his bowels are working although they are somewhat sluggish. He notes that he has never had abdominal surgery in the past. Since arrival to the emergency department he has had labs and imaging which I independent reviewed. CBC revealed white blood cell count was normal. His hemoglobin and hematocrit are 13.9 and 41.8. Platelet count is normal. Chemistry profile showed sodium and potassium are normal. His BUN and creatinine are 30 and 1.6. (This level of creatinine is near the patient's baseline from previous labs). Lactic acid level is normal at 1.0. There is no elevation of LFTs or lipase. Urinalysis was not indicative of infection. He also underwent a CT scan of the abdomen and pelvis. This showed the patient had a small amount of free intraperitoneal air potentially related to a perforated viscus. Patient does have a right inguinal hernia containing a loop of bowel with some inflammatory changes however there is no evidence of obstruction. At the time of my interview the patient was resting comfortably in bed. He did not appear to be in any distress Concerning past medical history the patient says that he is treated for hyperlipidemia, hypertension, and diabetes Concerning past surgical history the patient denies any previous surgeries Allergies Allergy/AdvReac Type Severity Reaction Status Date / Time lisinopril AdvReac Unknown COUGH Verified 10/26/17 17:24 Home Medications Medication Instructions Recorded Confirmed Type ASPIRIN 81 mg PO DAILY ##0 02/23/13 History CHOLECALCIFEROL (VITAMIN D3) 1,000 unit PO Q2D ##0 02/23/13 History Clonazepam (Klonopin) 1 mg PO HS PRN #0 tabs 02/23/13 History INSULIN ASPART (NOVOLOG) 0 SC ACHS #0 BTLS 02/23/13 History Insulin Glargine (Lantus) 35 unit SC QPM #0 vials 02/23/13 History LEVOTHYROXINE SODIUM 175 mcg PO DAILY ##0 02/23/13 History LOSARTAN 1 tab PO DAILY ##0 02/23/13 History SIMVASTATIN (ZOCOR) 40 mg PO QPM #0 tabs 02/23/13 History TAMSULOSIN HCL (FLOMAX) 0.4 mg PO DAILY #0 caps 02/23/13 History HYDROCHLOROTHIAZIDE 1 tab PO QAM ##0 10/26/17 History Patient History Family History Other Diabetes Gallbladder disease Social History Smoking Status: Former smoker Preferred Language: Hungarian Feels Safe at Home: Yes Review of Systems Review of Systems: All systems reviewed & are unremarkable except as noted in HPI & below Physical Exam Constitutional: WD/WN, vitals as above Eyes: Wears glasses ENMT: Ears: no hearing impairment and no external ear abnormality Mouth: no oropharynx abnormality Neck: trachea midline Respiratory: normal respiratory effort; no respiratory distress and no labored breathing Cardiovascular: Rate/Rhythm: regular rate and regular rhythm Gastrointestinal (Abdomen): Patient's abdomen is nondistended and soft. There is no rigidity. The patient did have a nonreducible palpable mass in the right lower quadrant/right groin consistent with known inguinal hernia. This area was painful to palpation and was not reducible. There are no overlying skin changes. This was the only painful area of the patient's abdomen. There is no rebound tenderness or guarding noted. Musculoskeletal: No calf tenderness. Pedal pulses are palpable. Radial pulses are palpable. Skin: no rashes Neurologic: moves all extremities Psychiatric: A+Ox3, euthymic affect Results & Data Vital Signs (Past 12 Hours) Vital Signs Temp Pulse Pulse Resp BP BP Pulse Ox 06/25/24 01:05 112 H 06/25/24 01:00 109 H 94 06/24/24 23:57 100 H 24 172/82 H 95 06/24/24 23:03 97 06/24/24 22:37 37.6 C H 115 H 16 104/65 94 O2 Del Method 06/25/24 01:05 06/25/24 01:00 Room Air 06/24/24 23:57 Room Air 06/24/24 23:03 Room Air 06/24/24 22:37 Room Air PG Care Time/CCT Total # of Minutes Spent Total Time Spent with Patient: Total time spent is greater than 50% in coordination of care (as documented) at patient's floor/unit and/or counseling patient: Coding Level of Care Code 22549 INT INP/OBS CARE 3/75MIN Diagnoses Free intraperitoneal air K66.8 Inguinal hernia K40.90
[2024-06-25] MEDS: fentaNYL citrate PF 100 MCG/2 ML VIAL IV PRN (04:55)
[2024-06-25] MEDS: SODIUM CHLORIDE 0.9% 1,000 ML IV ONE (04:57)
[2024-06-25] MEDS: SODIUM CHLORIDE 0.9% 1,000 ML IV SCH (04:58)
[2024-06-25] MEDS: PIPERACILLIN/TAZOBACTAM 4.5 GM/100 ML BAG IV ONE (05:03)
[2024-06-25] MEDS ORDERED: ONDANSETRON INJ 2 MG/ML 2 ML VIAL IV PRN (05:24)
[2024-06-25] MEDS ORDERED: ACETAMINOPHEN 1,000 MG/100 ML VIAL IV PRN (05:24)
[2024-06-25] MEDS ORDERED: MoRPHine SULFATE 4 MG/ML 1 ML CARP\\VIAL IV PRN (05:27)
--- NOTE | 2024-06-25 05:37 | History & Physical Report ---
Date of Service June 25, 2024 Assessment & Plan (1) Incarcerated inguinal hernia: (2) Perforated viscus: (3) Abdominal pain, acute: (4) Diabetes: (5) HTN (hypertension): (6) HLD (hyperlipidemia): (7) Hypothyroidism: Plan Right inguinal hernia, possibly incarcerated/free intraperitoneal air, possible perforated viscus- NPO Status post 1.5 L normal saline in the ED NSS at 100 mL/h Zofran 4 mg IV every 4 hours as needed Pantoprazole 40 mg IV daily Zosyn 4.5 g IV every 8 hours Acetaminophen 1 g IV every 8 hours as needed for mild pain or fever Morphine sulfate 2 mg IV every 3 hours as needed for moderate pain Morphine sulfate 4 mg IV every 3 hours as needed for severe pain Narcan 0.4 mg IV every 1 hour as needed for respiratory depression/oversedation Consult general surgery Hypertension/sinus tachycardia- Hold HCTZ, aspirin and losartan Lopressor 2.5 mg IV every 4 hours as needed for heart rate greater than 110 Diabetes mellitus- Change glargine from 35 units subcu to 10 units SQ every afternoon Placed on Accu-Cheks with NovoLog SSI Check hemoglobin A1c Hypothyroidism- On levothyroxine 175 mcg p.o. daily If n.p.o. for greater than 3 days, would start half dose IV daily BPH- Hold tamsulosin Monitor urine output for possible retention History of Present Illness Chief Complaint: The patient presents to the emergency department with worsening right lower quadrant abdominal pain over the past 4 to 5 days, particular over the past 24 hours. Primary Care Provider: [facility] The patient is an 88-year-old male with past medical history including right inguinal hernia, diabetes mellitus, hypertension, hyperlipidemia, hypothyroidism, and insomnia. He presents to the emergency department with right lower quadrant pain at the site of his right inguinal hernia, that has worsened over the past several days, in particular over the past [address] scan of the abdomen/pelvis is concerning for possible incarcerated hernia, and free intraperitoneal air, suggestive of possible perforated viscus. Surgery has assessed the patient in the emergency department, and has asked that the patient be admitted to the [facility] service for initial treatment Allergies Allergy/AdvReac Type Severity Reaction Status Date / Time lisinopril AdvReac Unknown COUGH Verified 10/26/17 17:24 Home Medications Medication Instructions Recorded Confirmed Type ASPIRIN 81 mg PO DAILY ##0 02/23/13 History CHOLECALCIFEROL (VITAMIN D3) 1,000 unit PO Q2D ##0 02/23/13 History Clonazepam (Klonopin) 1 mg PO HS PRN #0 tabs 02/23/13 History INSULIN ASPART (NOVOLOG) 0 SC ACHS #0 BTLS 02/23/13 History Insulin Glargine (Lantus) 35 unit SC QPM #0 vials 02/23/13 History LEVOTHYROXINE SODIUM 175 mcg PO DAILY ##0 02/23/13 History LOSARTAN 1 tab PO DAILY ##0 02/23/13 History SIMVASTATIN (ZOCOR) 40 mg PO QPM #0 tabs 02/23/13 History TAMSULOSIN HCL (FLOMAX) 0.4 mg PO DAILY #0 caps 02/23/13 History HYDROCHLOROTHIAZIDE 1 tab PO QAM ##0 10/26/17 History Past Med/Surg History Problem List (Updated 06/25/24 @ 06:18 by Estiven Suarez MD) Perforated viscus Incarcerated inguinal hernia Abdominal pain, acute (Acute) Inguinal hernia Free intraperitoneal air (Acute) Diabetes (Chronic) HTN (hypertension) (Chronic) HLD (hyperlipidemia) (Chronic) Hypothyroidism (Chronic) Family History Other Diabetes Gallbladder disease Social History Smoking Status: Former smoker Preferred Language: Upper Sorbian Feels Safe at Home: Yes Review of Systems Review of Systems: The patient denies chest pain, palpitations, shortness of breath, dyspnea on exertion, cough, lower extremity swelling, sore throat, fevers, chills, sweats, nausea, vomiting, blood in urine or stool, dysuria, urinary frequency or urgency, lightheadedness, dizziness, headache, memory loss, loss of consciousness, rash, abnormal bruising or bleeding, imbalance, focal weakness, numbness or tingling in arms or legs, generalized arthralgias or myalgias, back or neck pain, or night sweats. The review of systems is otherwise negative other than for that already noted above, and at least 10 systems have been reviewed. Physical Exam Physical Exam: The patient is awake, alert and oriented 3, well developed and well nourished, normocephalic and atraumatic, lying in bed and in no acute distress. HEENT--PERRL, EOMI, mucous membranes and oropharynx mildly dry. Neck--supple. No JVD. No bruits. Thyroid normal, trachea midline, no adenopathy. Heart--normal S1 and S2. No murmurs, rubs or gallops. Lungs--clear bilaterally, no respiratory distress, no accessory muscle use. Abdomen--decreased bowel sounds, soft, tender right lower quadrant, right inguinal hernia. Extremities--no cyanosis or clubbing. No edema. There are good distal pulses b/l. Dermatologic--normal skin turgor, normal color, no abnormal lymph nodes, no rash. Neurologic--cranial nerves II through XII grossly intact. Rheumatologic--limited exam due to groin pain Psychiatric--normal affect. Results & Data Results & Data Vital Signs (Past 12 Hours) Vital Signs Temp Pulse Pulse Resp BP BP Pulse Ox 06/25/24 05:00 114 H 06/25/24 01:05 112 H 06/25/24 01:00 109 H 94 06/24/24 23:57 100 H 24 172/82 H 95 06/24/24 23:03 97 06/24/24 22:37 37.6 C H 115 H 16 104/65 94 O2 Del Method 06/25/24 05:00 06/25/24 01:05 06/25/24 01:00 Room Air 06/24/24 23:57 Room Air 06/24/24 23:03 Room Air 06/24/24 22:37 Room Air Laboratory Results Laboratory Results WBC 8.22 K/ul (4.8-10.8) 06/24/24 22:55 RBC 4.48 M/uL (4.70-6.10) L 06/24/24 22:55 Hgb 13.9 g/dl (14.0-18.0) L 06/24/24 22:55 POC Hgb 14.6 g/dl (14.0-18.0) 06/24/24 23:02 Hct 41.8 % (42.0-52.0) L 06/24/24 22:55 POC Hct 43 % (42-52) 06/24/24 23:02 MCV 93.3 fL (80.0-100.0) 06/24/24 22: MCH 31.0 pg (25.0-34.0) 06/24/24 22: MCHC 33.3 g/dL (32.0-36.0) 06/24/24 22: RDW Std Deviation 44.8 fL (36.4-46.3) 06/24/24: RDW Coeff of Kalli 13.1 % (11.5-14.5) 06/24/24 22: Plt Count 172 K/uL (130-400) 06/24/24 22: MPV 10.9 fL (9.4-12.4) 06/24/24 22: Immature Gran % (Auto) 0.2 % 06/24/24 22: Neut % (Auto) 88.0 % 06/24/24 22: Lymph % (Auto) 5.0 % 06/24/24 22: Sterling % (Auto) 6.7 % 06/24/24 22: Eos % (Auto) 0.0 % 06/24/24 22: Baso % (Auto) 0.1 % 06/24/24 22: Neut # (Auto) 7.23 K/uL (1.40-6.50) H 06/24/24 22:55 Lymph # (Auto) 0.41 K/uL (1.20-3.40) L 06/24/24 22:55 Sterling # (Auto) 0.55 K/uL (0.11-0.59) 06/24/24 22: Eos # (Auto) 0.00 K/uL (0.00-0.50) 06/24/24 22:55 Baso # (Auto) 0.01 K/uL (0.00-0.20) 06/24/24 22: Immature Gran # (Auto) 0.02 K/uL (0.01-0.20) 06/24/24 22:55 POC Sodium 138 mmol/L (135-144) 06/24/24 23:02 Sodium 138 mmol/L (136-145) 06/24/24 22: POC Potassium 4.2 mmol/L (3.3-5.0) 06/24/24 23:02 Potassium 4.3 mmol/L (3.5-5.1) 06/24/24 22:55 POC Chloride 103 mmol/L (101-112) 06/24/24 23:02 Chloride 103 mmol/L (98-107) 06/24/24 22:55 Carbon Dioxide 26 mmol/L (21-32) 06/24/24 22:55 POC Total CO2 26 mmol/L (24-31) 06/24/24 23:02 Anion Gap 9 (3-11) 06/24/24 22:55 POC Anion Gap 14.0 mmol/L (16-25) L 06/24/24 23:02 POC BUN 31 mg/dl (7-18) H 06/24/24 23:02 BUN 30 mg/dl (6-23) H 06/24/24 22:55 Creatinine 1.66 mg/dl (0.6-1.4) H 06/24/24 22:55 POC Creatinine 1.7 mg/dl (0.6-1.3) H 06/24/24 23:02 Est Cr Clr Drug Dosing 24.9 ml/min 06/24/24 22:55 Est GFR ( Amer) 42.0 ml/min 06/24/24 22:55 Est GFR (Non-Af Amer) 36.3 ml/min 06/24/24 22:55 BUN/Creatinine Ratio 18.1 (10-20) 06/24/24 22:55 Glucose 150 mg/dl (70-99(Fasting)) H 06/24/24 22:55 POC Glucose (other) 150 mg/dl (70-99) H 06/24/24 23:02 Lactate 1.0 mmol/L (0.4-2.0) 06/25/24 01:02 Calcium 9.6 mg/dl (8.6-10.3) 06/24/24 22:55 POC Ioniz Calcium Sascha 1.21 mmol/l (1.12-1.32) 06/24/24 23:02 Total Bilirubin 0.5 mg/dl (0.2-1.0) 06/24/24 22:55 AST 18 U/L (13-39) 06/24/24 22:55 ALT 13 U/L (7-52) 06/24/24 22:55 Alkaline Phosphatase 52 U/L (34-104) 06/24/24 22:55 Total Protein 6.7 gm/dl (6.0-8.3) 06/24/24 22:55 Albumin 4.1 gm/dl (3.4-5.0) 06/24/24 22:55 Globulin 2.6 gm/dl (2.5-4.0) 06/24/24 22:55 Albumin/Globulin Ratio 1.6 (0.9-2) 06/24/24 22:55 Lipase 57 U/L (11-82) 06/24/24 22:55 Urine Color Yellow 06/25/24 00:24 Urine Appearance Clear (Clear) 06/25/24 00:24 Urine pH 5.5 (4.5-7.5) 06/25/24 00:24 Ur Specific [place] 1.033 (1.000-1.030) H 06/25/24 00:24 Urine Protein 1+ (Negative) H 06/25/24 00:24 Urine Glucose (UA) 3+ (Negative) H 06/25/24 00:24 Urine Ketones Trace (Negative) H 06/25/24 00:24 Urine Blood Negative (Negative) 06/25/24 00:24 Urine Nitrite Negative (Negative) 06/25/24 00:24 Urine Bilirubin Negative (Negative) 06/25/24 00:24 Urine Urobilinogen Negative (Negative) 06/25/24 00:24 Ur Leukocyte Esterase Negative (Negative) 06/25/24 00:24 Urine WBC (Auto) 0-5 /hpf (0-5) 06/25/24 00:24 Urine RBC (Auto) 0-2 /hpf (0-2) 06/25/24 00:24 U Hyaline Cast (Auto) 0-2 /lpf (0-2) 06/25/24 00:24 U Epithel Cells (Auto) 0-2 /hpf (0-2) 06/25/24 00:24 Urine Bacteria (Auto) None Seen (None Seen) 06/25/24 00:24 Impressions Abdomen/Pelvis CT 06/24/24 22:51 CR Exam(s): CT ABDOMEN + PELVIS With Contrast IV Amt: 93 ml optiray 320 EXAM: CT Abdomen and Pelvis With Intravenous Contrast CLINICAL HISTORY: Reason for exam: lower abd pain, hernia. TECHNIQUE: Axial computed tomography images of the abdomen and pelvis with intravenous contrast. CTDI is 8.88 mGy and DLP is 424.45 mGy-cm. Automated exposure control was utilized for the study. A dose lowering technique was utilized adhering to the principles of ALARA. CONTRAST: Patient received 93 ml optiray 320 of IV contrast COMPARISON: No relevant prior studies available. FINDINGS: Lung bases: No consolidation. The heart contains coronary artery calcifications. ABDOMEN: Liver: No mass. Gallbladder and bile ducts: No calcified stones. No ductal dilation. Pancreas: No mass. No ductal dilation. Spleen: No splenomegaly. Adrenals: No mass. Kidneys and ureters: No hydronephrosis. There is a 1.7 cm lucency noted in the right kidney. Stomach and bowel: The stomach is decompressed. The colon is distended containing air and stool. There are diverticula present on the colon. No significant inflammatory changes are seen. There is a right inguinal hernia containing a loop of small bowel. There are some inflammatory changes in the hernia sac. No evidence of bowel obstruction. PELVIS: Appendix: No findings to suggest acute appendicitis. Bladder: There is thickening of the urinary bladder wall.. Reproductive: The prostate gland is enlarged.. ABDOMEN and PELVIS: Intraperitoneal space: There is a small amount of free intraperitoneal air noted.. No significant fluid collection. Bones/joints: There are degenerative changes in the spine.. Soft tissues: There are areas of increased density noted in the subcutaneous tissues of the anterior abdominal wall. This is of uncertain etiology. Vasculature: There are extensive atherosclerotic changes. No abdominal aortic aneurysm. Lymph nodes: No enlarged lymph nodes. IMPRESSION: There is a small amount of free intraperitoneal air. This may be related to a perforated viscus. There is a right inguinal hernia containing a loop of small bowel. There are some inflammatory changes in the hernia sac. This suggests incarceration. No evidence of bowel obstruction. Diverticulosis. There is thickening of the urinary bladder wall. This may be due to hypertrophy. Cannot exclude a process such as cystitis. Prostate gland is enlarged. There is a possible right renal cyst. Communications: Call Doctor Pneumoperitoneum, new or unexpected Electronically signed by: Vishnu Liz MD 06/25/24 03:49 AM Code Status & VTE Plan Code Status Full code VTE Prophylaxis Plan VTE Prophylaxis will be ordered: Yes PG Care Time/CCT Total # of Minutes Spent Total Time Spent with Patient: Total time spent is greater than 50% in coordination of care (as documented) at patient's floor/unit and/or counseling patient: Coding Level of Care Code 85412 INT INP/OBS CARE MIN Diagnoses Incarcerated inguinal hernia K40.30 Perforated viscus R19.8 Abdominal pain, acute R10.9 Diabetes E11.9 HTN (hypertension) I10 HLD (hyperlipidemia) E78.5 Hypothyroidism E03.9
[2024-06-25] MEDS ORDERED: METOPROLOL TARTRATE 1 MG/ML VIAL IV PRN (05:38)
[2024-06-25] MEDS ORDERED: CARBOHYDRATES FOR HYPOGLYCEMIA PO PRN (06:19)
[2024-06-25] MEDS ORDERED: GLUCAGON FOR INJ 1 MG VIAL SQ PRN (06:19)
[2024-06-25] MEDS ORDERED: DEXTROSE 50% 50 ML SYRINGE IV PRN (06:19)
[2024-06-25] MEDS ORDERED: GLUCOSE 40% GEL 15 GM TUBE PO PRN (06:19)
[2024-06-25] MEDS ORDERED: GLUCOSE 10 TAB/TUBE PO PRN (06:19)
[2024-06-25] MEDS ORDERED: NALOXONE HCL 0.4 MG/1 ML VIAL/CARP IV PRN (06:22)
--- NOTE | 2024-06-25 06:57 | Emergency Department Note ---
ED Visit Note I was consulted by the Advanced Practice Provider. I approved the management plan and take responsibility for the patient management. This includes the aspects of: -History/Physical/Personally seeing the patient -MDM -I independently interpreted the following studies:Studies and results .
[2024-06-25] MEDS: INSULIN ASPART PER UNIT CHARGE SC SCH (07:54)
[2024-06-25] MEDS: PANTOprazole 40 MG in SYRINGE 0 ML IV SCH (10:59)
[2024-06-25] MEDS: PIPERACILLIN/TAZOBACTAM 4.5 GM/100 ML BAG IV SCH (12:16)
[2024-06-25] MEDS ORDERED: POLYETHYLENE (MIRALAX) 17 GM PACK PO PRN (12:20)
--- NOTE | 2024-06-25 12:24 | Hospitalist Progress Note ---
Date of Service June 25, 2024 Assessment & Plan (1) Incarcerated inguinal hernia: Plan: Right inguinal hernia, possibly incarcerated/free intraperitoneal air, possible perforated viscus- Status post 1.5 L normal saline in the ED Zosyn 4.5 g IV every 8 hours Consult general surgery - no surgery planned at this time, suspect perforation has sealed itself. Outpatient surgery for hernia in the future - continue zosyn, trend AM labs (2) Perforated viscus: (3) Diabetes: Plan: Home regiment: jardiance, ozempic and inuslin Change glargine from 35 units subcu to 10 units SQ every afternoon Placed on Accu-Cheks with NovoLog SSI hemoglobin A1c ordered (4) BPH (benign prostatic hyperplasia): Plan: BPH- Takes alfuzosin. Flomax while here monitor for retention Plan Hypertension/sinus tachycardia- Patient is no longer on medications for BP (had 40# weight loss with Ozempic) - continue to monitor Hypothyroidism- On levothyroxine 88 mcg p.o. daily (per recently filled meds) - resume 06/26 HLD - continue statin Dispo: continued inpatient stay Dvt proh: chemical held in case of need of surgery, encourage ambulation Son updated at bedside 06/25 Admission and Anticipated Discharge Date Admission Date: June 25, 2024 Supervising Physician Co-Signing Physician Notes Attending Attestation - Chart reviewed, care plan d/w АННА Lord. I agree w/ the wang components of her documentation. Appreciate general surgery assistance. Pk Campbell MD Subjective Patient seen while holding in the ED, son is present at bedside Pain is decreasing and tolerable at the time of my evaluation patient reports he struggles with constipation at home low grade fever - unsure if he had fevers at home Review of Systems Review of Systems: All systems reviewed & are unremarkable except as noted in Subjective Physical Exam Physical Exam: General: NAD, VS as above Resp: normal respiratory effort, lungs clear to auscultation CV: RRR, no murmur, Abd: soft, no incarcerated hernia seen, tender RLQ, no guarding Extremities: Moves all extremities, no edema Neuro: A&O x3, Skin: intact, no lesions noted Results & Data Results & Data Vital Signs (Past 12 Hours) Vital Signs Temp Pulse Pulse Resp BP BP Pulse Ox 06/25/24 12:21 98.2 F 100 H 19 152/84 H 97 06/25/24 10:58 98.2 F 104 H 23 164/83 H 95 06/25/24 08:19 92 H 20 169/95 H 97 06/25/24 07:28 06/25/24 07:20 104 H 18 97 06/25/24 07:11 95 H 96 06/25/24 07:02 99 H 06/25/24 06:56 101 H 20 95 06/25/24 06:44 112 H 96 06/25/24 06:26 106 H 19 96 06/25/24 06:14 112 H 97 06/25/24 05:50 92 H 15 98 06/25/24 05:48 175/92 H 06/25/24 05:41 95 H 17 96 06/25/24 05:32 110 H 14 98 06/25/24 05:11 120 H 19 95 06/25/24 05:08 105 H 16 93 06/25/24 05:00 92 H 20 175/92 H 97 06/25/24 05:00 114 H 06/25/24 04:47 109 H 17 06/25/24 04:23 104 H 19 06/25/24 03:42 94 H 96 06/25/24 03:39 106 H 95 06/25/24 03:24 108 H 96 06/25/24 03:00 109 H 22 94 06/25/24 02:57 111 H 21 95 06/25/24 02:36 105 H 95 06/25/24 02:24 108 H 12 96 06/25/24 02:12 100 H 97 06/25/24 02:00 112 H 95 06/25/24 01:45 112 H 20 95 06/25/24 01:21 109 H 94 06/25/24 01:12 112 H 94 06/25/24 01:05 112 H 06/25/24 01:00 109 H 94 Pulse Ox O2 Del Method O2 Del Method 06/25/24 12:21 Room Air 06/25/24 10:58 Room Air 06/25/24 08:19 Room Air 06/25/24 07:28 97 Room Air 06/25/24 07:20 06/25/24 07:11 06/25/24 07:02 06/25/24 06:56 06/25/24 06:44 06/25/24 06:26 06/25/24 06:14 06/25/24 05:50 06/25/24 05:48 06/25/24 05:41 06/25/24 05:32 06/25/24 05:11 06/25/24 05:08 06/25/24 05:00 Room Air 06/25/24 05:00 06/25/24 04:47 06/25/24 04:23 06/25/24 03:42 06/25/24 03:39 06/25/24 03:24 06/25/24 03:00 06/25/24 02:57 06/25/24 02:36 06/25/24 02:24 06/25/24 02:12 06/25/24 02:00 06/25/24 01:45 06/25/24 01:21 06/25/24 01:12 06/25/24 01:05 06/25/24 01:00 Room Air PG Care Time/CCT Total # of Minutes Spent Total Time Spent with Patient: Total time spent is greater than 50% in coordination of care (as documented) at patient's floor/unit and/or counseling patient: Coding Level of Care Code None Diagnoses Incarcerated inguinal hernia K40.30 Perforated viscus R19.8 Diabetes E11.9 BPH (benign prostatic hyperplasia) N40.0
[2024-06-25] MEDS: DOCUSATE SODIUM 100 MG CAP PO SCH (16:10)
[2024-06-25] MEDS: MoRPHine SULFATE 2 MG/ML CARP IV PRN (16:12)
[2024-06-25] MEDS: TAMSULOSIN HCL 0.4 MG CAP PO SCH (20:55)
[2024-06-25] MEDS: SIMVASTATIN 80 MG TAB PO SCH (20:55)
[2024-06-25] MEDS: LANTUS PER UNIT CHARGE SQ SCH (21:25)
[2024-06-26] MEDS: LEVOTHYROXINE SODIUM 175 MCG TABLET PO SCH (05:54)
[2024-06-26 06:00] LABS: Hematocrit (blood only) 37.2 % (42.0-52.0); Hemoglobin 12.1 g/dl (14.0-18.0); Mean Corpuscular Hemoglobin 31.2 pg (25.0-34.0); Mean Corpuscular Hgb Conc 32.5 g/dL (32.0-36.0); Mean Corpuscular Volume 95.9 fL (80.0-100.0); Mean Platelet Volume 10.7 fL (9.4-12.4); Platelet Count 155 K/uL (130-400); RDW Coefficient of Variation 13.7 % (11.5-14.5); RDW Standard Deviation 48.3 fL (36.4-46.3); Red Blood Count 3.88 M/uL (4.70-6.10); White Blood Count 8.53 K/ul (4.8-10.8)
[2024-06-26 06:15] LABS: Albumin Globulin Ratio 1.3 (0.9-2); Albumin Level 3.2 gm/dl (3.4-5.0); BUN Creatinine Ratio 18.6 (10-20); Bilirubin,Total 0.6 mg/dl (0.2-1.0); Calcium 8.5 mg/dl (8.6-10.3); Est GFR (African American) 45.3 ml/min; Est GFR (Non-African American) 39.1 ml/min; Globulin 2.4 gm/dl (2.5-4.0); Total Protein 5.6 gm/dl (6.0-8.3)
[2024-06-26 06:21] LABS: Basophils # (auto) 0.02 K/uL (0.00-0.20); Basophils % (auto) 0.2 %; Immature Granulocytes # (auto) 0.06 K/uL (0.01-0.20); Immature Granulocytes % (auto) 0.7 %; Lymphocytes % (auto) 4.7 %; Monocytes # (auto) 0.33 K/uL (0.11-0.59); Monocytes % (auto) 3.9 %; Neutrophils # (auto) 7.72 K/uL (1.40-6.50); Neutrophils % (auto) 90.5 %; Polychromasia 1+; Toxic Vacuolation 1+
[2024-06-26 06:29] LABS: Thyroid Stimulating Hormone 6.14 uIu/ml (0.300-4.500)
[2024-06-26] MEDS: ASPIRIN 81 MG ECTAB PO SCH (08:03)
[2024-06-26] MEDS: ACETAMINOPHEN 325 MG TAB PO PRN (08:07)
[2024-06-26 08:35] LABS: Estimated Average Glucose 180 mg/dl; Hemoglobin A1C 7.9 % (4.5-5.6)
[2024-06-26] MEDS: bisacodyL 10 MG SUPP PR STA (09:47)
--- NOTE | 2024-06-26 12:21 | Surgery Progress Note ---
Date of Service June 26, 2024 Assessment & Plan (1) Perforated viscus: Plan: Pt here with concern for speck of free air on CT scan and R inguinal hernia R inguinal hernia is reducible. there is no concern for bowel obstruction Today blood work shows WBC 8.5. Vitals are stable He overall feels better, but with some intermittent R sided abdominal pain + stool burden, will continue bowel regimen from below as needed as this could be contributing to his symptoms. did have BM s/p suppository today may start clears and advance diet as tolerates may transition to a course of po abx upon dispo and f/u with dr. cantu as an outpt to discuss elective r inguinal hernia repair in the future (2) Incarcerated inguinal hernia: Admission and Anticipated Discharge Date Admission Date: June 25, 2024 Supervising Physician Co-Signing Physician Notes I had seen and examined this patient with the surgical PA and I agree with the plan Subjective Patient reports feeling better, but does continue w/ some right sided abdominal pain. Denies nausea/vomiting. Some constipation noted. Physical Exam Physical Exam: awake, no distress Gastrointestinal (Abdomen): mild R mid abdominal discomfort and R groin discomfort, R groin soft and hernia reducible per surgeon Results & Data Vital Signs (Past 12 Hours) Vital Signs Temp Pulse Resp BP Pulse Ox O2 Del Method 06/26/24 11:18 97.7 F 80 18 130/70 92 Room Air 06/26/24 07:46 98.1 F 83 18 149/73 H 95 Room Air 06/26/24 02:57 98.6 F 88 16 145/70 H 96 Room Air PG Care Time/CCT Total # of Minutes Spent Total Time Spent with Patient: Total time spent is greater than 50% in coordination of care (as documented) at patient's floor/unit and/or counseling patient: Coding Level of Care Code 10754 SUB INP/OBS CARE 10/21MIN Diagnoses Perforated viscus R19.8 Incarcerated inguinal hernia K40.30
--- NOTE | 2024-06-26 13:39 | Hospitalist Progress Note ---
Date of Service June 26, 2024 Assessment & Plan (1) Incarcerated inguinal hernia: Plan: Right inguinal hernia, possibly incarcerated/free intraperitoneal air, possible perforated viscus- Status post 1.5 L normal saline in the ED Zosyn 4.5 g IV every 8 hours Consult general surgery - no surgery planned at this time, suspect perforation has sealed itself. - Follow-up with Dr. Manley as outpatient to discuss elective R inguinal hernia repair - continue zosyn, trend AM labs - continue bowel regimen as this could be contributing to his symptoms - start clear liquids and advance diet as tolerated + BM after suppository 06/26 Diet advanced to full liquids for dinner (2) Perforated viscus: (3) Diabetes: Plan: Home regiment: Jardiance, Ozempic and insulin Change glargine from 35 units subcu to 10 units SQ every afternoon Placed on Accu-Cheks with NovoLog SSI hemoglobin A1c 7.9% -- recommend f/u with PCP (4) BPH (benign prostatic hyperplasia): Plan: BPH- Takes alfuzosin. Flomax while here monitor for retention (5) Hypothyroidism: Plan: Takes Synthroid 175 mcg at home -TSH elevated at 6.14 -Increase Synthroid to 200 mcg daily. Recommend recheck in 4-6 weeks. Plan Advanced to full liquid diet Increased Synthroid Hypertension/sinus tachycardia- Patient is no longer on medications for BP (had 40# weight loss with Ozempic) - continue to monitor HLD - continue statin Dispo: continued inpatient stay Dvt proh: chemical held in case of need of surgery, encourage ambulation CODE STATUS: Full code Son updated at bedside 06/25 Admission and Anticipated Discharge Date Admission Date: June 25, 2024 Supervising Physician Co-Signing Physician Notes Attending Attestation - Chart reviewed, care plan d/w АННА Hair. I agree with the wang components of her documentation. Appreciate gen surg assistance. Diet to be advanced today. Pk Campbell MD Subjective Patient seen and evaluated at bedside. He reports feeling better today as he had a significant bowel movement after a suppository. He continues to note some RLQ and right groin tenderness. He denies any nausea or vomiting. He has been well tolerating clear liquid diet. Will advance diet to full liquids at this time. No additional complaints or concerns at this time. Physical Exam Physical Exam: General: No acute distress, nondiaphoretic, well-developed, well-nourished. Skin: The skin was without rashes, erythema, edema, or bruising. Cardiac: Regular rate and rhythm without murmurs gallops or rubs. Pulm: Clear to auscultation bilaterally without wheezes, rales or rhonchi. No respiratory distress. 92% on room air. Abdominal: Bowel sounds present. Soft, nondistended. No incarcerated hernia noted. RLQ and right groin tenderness. Neuro: A&O x3. No focal neurological deficits. Results & Data Results & Data Vital Signs (Past 12 Hours) Vital Signs Temp Pulse Resp BP Pulse Ox O2 Del Method 06/26/24 11:18 97.7 F 80 18 130/70 92 Room Air 06/26/24 07:46 98.1 F 83 18 149/73 H 95 Room Air 06/26/24 02:57 98.6 F 88 16 145/70 H 96 Room Air Laboratory Results Reviewed CBC Reviewed chemistries PG Care Time/CCT Total # of Minutes Spent Total Time Spent with Patient: Total time spent is greater than 50% in coordination of care (as documented) at patient's floor/unit and/or counseling patient: Coding Level of Care Code 30183 SUB INP/OBS CARE 235MIN Diagnoses Incarcerated inguinal hernia K40.30 Perforated viscus R19.8 Diabetes E11.9 BPH (benign prostatic hyperplasia) N40.0 Hypothyroidism E03.9
[2024-06-27] MEDS ORDERED: Nursing to Pharmacy Communication SCH (00:30)
[2024-06-27 02:30] VITALS: RESP 18
[2024-06-27] MEDS: LEVOTHYROXINE SODIUM 200 MCG TABLET PO SCH (05:22)
[2024-06-27 05:57] LABS: Basophils # (auto) 0.03 K/uL (0.00-0.20); Basophils % (auto) 0.4 %; Eosinophils # (auto) 0.03 K/uL (0.00-0.50); Eosinophils % (auto) 0.4 %; Hematocrit (blood only) 39.1 % (42.0-52.0); Hemoglobin 12.4 g/dl (14.0-18.0); Immature Granulocytes # (auto) 0.04 K/uL (0.01-0.20); Immature Granulocytes % (auto) 0.5 %; Lymphocytes # (auto) 0.73 K/uL (1.20-3.40); Mean Corpuscular Hemoglobin 30.5 pg (25.0-34.0); Mean Corpuscular Hgb Conc 31.7 g/dL (32.0-36.0); Mean Corpuscular Volume 96.3 fL (80.0-100.0); Mean Platelet Volume 10.4 fL (9.4-12.4); Monocytes # (auto) 0.37 K/uL (0.11-0.59); Monocytes % (auto) 4.6 %; Neutrophils % (auto) 85.1 %; Platelet Count 163 K/uL (130-400); RDW Coefficient of Variation 13.5 % (11.5-14.5); RDW Standard Deviation 48.7 fL (36.4-46.3); Red Blood Count 4.06 M/uL (4.70-6.10)
[2024-06-27 06:14] LABS: Albumin Globulin Ratio 1.2 (0.9-2); Albumin Level 3.4 gm/dl (3.4-5.0); BUN Creatinine Ratio 16.2 (10-20); Bilirubin,Total 0.6 mg/dl (0.2-1.0); Calcium 8.7 mg/dl (8.6-10.3); Creatinine Clr Calc Pharmacy 28.3 ml/min; Est GFR (African American) 50.7 ml/min; Est GFR (Non-African American) 43.8 ml/min; Globulin 2.8 gm/dl (2.5-4.0); Magnesium 2.1 mg/dl (1.7-2.4); Potassium 3.6 mmol/L (3.5-5.1); Total Protein 6.2 gm/dl (6.0-8.3)
[2024-06-27 06:32] LABS: T4 Free Thyroxine 1.03 ng/dl (0.61-1.60)
--- NOTE | 2024-06-27 07:28 | Surgery Progress Note ---
Date of Service June 27, 2024 Assessment & Plan (1) Perforated viscus: Plan: Pt here with concern for speck of free air on CT scan and R inguinal hernia R inguinal hernia is reducible. there is no concern for bowel obstruction Today blood work shows WBC 8.5. Vitals are stable He overall feels better, but with some intermittent R sided abdominal pain that is improving each day He is having + bowel function after suppositories given yesterday May continue to adv diet as tolerates may transition to a course of po abx upon dispo and f/u with dr. cantu as an outpt to discuss elective r inguinal hernia repair in the future (2) Incarcerated inguinal hernia: Admission and Anticipated Discharge Date Admission Date: June 25, 2024 Subjective Patient reports some mild R sided abdominal pain but tells me it is getting better. He is tolerating fulls without nausea/vomiting. + gas and BM reported yesterday. No R groin pain. Physical Exam Physical Exam: awake, no distress Gastrointestinal (Abdomen): Inspection/Auscultation: abdomen not distended Percussion/Palpation: abdomen soft; abdomen nontender R groin non tender and soft Results & Data Vital Signs (Past 12 Hours) Vital Signs Temp Pulse Pulse Resp BP Pulse Ox O2 Del Method 06/27/24 02:29 98.8 F 81 18 154/74 H 96 Room Air 06/26/24 23:51 81 06/26/24 23:13 98.8 F 83 16 146/77 H 95 Room Air PG Care Time/CCT Total # of Minutes Spent Total Time Spent with Patient: Total time spent is greater than 50% in coordination of care (as documented) at patient's floor/unit and/or counseling patient: Coding Level of Care Code 38325 SUB INP/OBS CARE 10/21MIN Diagnoses Perforated viscus R19.8 Incarcerated inguinal hernia K40.30
[2024-06-27 08:07] VITALS: TEMP 98.1
[2024-06-27] MEDS: INSULIN ASPART PER UNIT CHARGE SC SCH (08:40)
--- NOTE | 2024-06-27 09:14 | Hospitalist Progress Note ---
Date of Service June 27, 2024 Assessment & Plan (1) Incarcerated inguinal hernia: Plan: Right inguinal hernia, possibly incarcerated/free intraperitoneal air, possible perforated viscus- Status post 1.5 L normal saline in the ED Zosyn 4.5 g IV every 8 hours Consult general surgery - no surgery planned at this time, suspect perforation has sealed itself. - Follow-up with Dr. Manley as outpatient to discuss elective R inguinal hernia repair - continue zosyn, trend AM labs - continue bowel regimen as this could be contributing to his symptoms - start clear liquids and advance diet as tolerated + BM after suppository 06/26 Diet advanced to full liquids for dinner 06/27 Zosyn IV Full liquids--> Low fiber diet for today +BM last evening after suppository. Per general surgery, may transition to PO abx upon dc and f/u Dr Manley for elective R inguinal hernia repair in future Synthroid increased to 100mcg daily given TSH elevation 6.14 with LOW Free T3 1.94 and constipation issues at baseline to prevent. Will need repeat TFT outpatient in 4-6 wks (2) Perforated viscus: (3) Diabetes: Plan: Home regiment: Jardiance, Ozempic and insulin Change glargine from 35 units subcu to 10 units SQ every afternoon Placed on Accu-Cheks with NovoLog SSI hemoglobin A1c 7.9% -- recommend f/u with PCP (4) BPH (benign prostatic hyperplasia): Plan: BPH- Takes alfuzosin. Flomax while here monitor for retention (5) Hypothyroidism: Plan: Takes Synthroid 175 mcg at home -TSH elevated at 6.14 -Increase Synthroid to 200 mcg daily. Recommend recheck in 4-6 weeks. Plan Advanced to full liquid diet Increased Synthroid Hypertension/sinus tachycardia- Patient is no longer on medications for BP (had 40# weight loss with Ozempic) - continue to monitor HLD - continue statin Dispo: continued inpatient stay Dvt proh: chemical held in case of need of surgery, encourage ambulation CODE STATUS: Full code Son updated at bedside 06/25 Admission and Anticipated Discharge Date Admission Date: June 25, 2024 Results & Data Results & Data Vital Signs (Past 12 Hours) Vital Signs Temp Pulse Pulse Resp BP Pulse Ox O2 Del Method 06/27/24 08:06 36.7 C 79 18 165/76 H 96 Room Air 06/27/24 08:00 73 06/27/24 02:29 37.1 C 81 18 154/74 H 96 Room Air 06/26/24 23:51 81 06/26/24 23:13 37.1 C 83 16 146/77 H 95 Room Air PG Care Time/CCT Total # of Minutes Spent Total Time Spent with Patient: Total time spent is greater than 50% in coordination of care (as documented) at patient's floor/unit and/or counseling patient: Coding Diagnoses Incarcerated inguinal hernia K40.30 Perforated viscus R19.8 Diabetes E11.9 BPH (benign prostatic hyperplasia) N40.0 Hypothyroidism E03.9
--- NOTE | 2024-06-27 09:46 | Discharge Summary ---
Discharge Summary Date of Service June 27, 2024 Principal Dx & Hospital Course #1 = Principal Diagnosis (1) Perforated viscus: Patient presented with RIGHT lower quadrant pain over the past 4-5 days, worse in 24 hours prior to admission CTAP obtained which reported: There is a small amount of free intraperitoneal air. This may be related to a perforated viscus.There is a right inguinal hernia containing a loop of small bowel. There are some inflammatory changes in the hernia sac. This suggests incarceration. No evidence of bowel obstruction.Diverticulosis.There is thickening of the urinary bladder wall. This may be due to hypertrophy. Cannot exclude a process such as cystitis.Prostate gland is enlarged.There is a possible right renal cyst. General surgery consulted, Dr Manley While inpatient, was provided supportive care with IVF, IV antibiotics and hernia reducible. Lactic 1.0 No concerns for obstruction and had + BM after suppository 06/26 and diet was advanced to full liquids and morning 06/28 feeling well and tolerating advancement of low fiber diet and wanting to go home. Cleared by surgery for ok for discharge on course of oral antibiotics, Augmentin renal dose sent at discharge to complete the course and outpt surgery follow up for eventual repair Encouraged daily bowel regimen/hydration and monitoring for any fever/redness/increased pain but also had checked TSH which was elevated to 6. 140 with LOW free T3 and his home Synthroid was increased to 100mcg daily and should have repeat TFT with PCP in 4-6 weeks. Should help with energy/constipation/fatigue issues as well. NEED TO CONFIRM DOSE W PATIENT BELOW BUT RX for 100mcg as outlined Patient tolerated low fiber diet with out pain this afternoon and discharge in place. Complete course Augmentin as outlined and general surgery follow up at discharge for elective repair. (2) Incarcerated inguinal hernia: as above, reducible and moving bowels with advancement of diet and outpatient follow up for elective repair in the future with Dr Manley WBC normalized on repeat and has been afebrile. Completing course Augmentin as above for possible perf viscous as discussed with general surgery, 7 day total course (IV/PO). (3) Diabetes: A1c 7.9, on Jardiance, Ozempic and insulin at dc Home meds held/sliding scale while inpatient and resumed home meds at discharge with recs for outpatient follow up with PCP (4) BPH (benign prostatic hyperplasia): BPH-Takes alfuzosin at baseline which was substituted for flomax while inpatient as non-formulary. Denied issues with urination and can resume home meds at dc (5) Hypothyroidism: PRIOR REPORTS OF 175mcg at home and TSH elevated with LOW t3 as above Synthroid initially increased to 200mcg daily HOWEVER review of fill history he has only been getting filled at 88mcg dosing SENT RX FOR SYNTHROID 100mcg DAILY GIVEN PRIOR RX 75mcg to prevent over treating SHOULD HAVE REPEAT TFT OUTPT WITH PCP Plan Hypertension/sinus tachycardia- Patient is no longer on medications for BP (had 40# weight loss with Ozempic) - BP stable. Outpt f/u [facility] - continued statin Son updated at bedside 06/27 Outpt PCP follow up as well as general surgery Notes For Next Care Provider Ensure was on 88mcg synthroid as increased to 100mcg given elevated TSH/low T3. Repeat TFT in 4-6 wks recommended Outpt follow up general surgery for hernia repair in the future Medication Changes From Visit Synthroid increased to 100mcg daily Augmentin renal dosed 500mg BID x 4 days (3 days IV) for total 7 days abx therapy Admission HPI Per Admitting Provider The patient is an 88-year-old male with past medical history including right inguinal hernia, diabetes mellitus, hypertension, hyperlipidemia, hypothyroidism, and insomnia. He presents to the emergency department with right lower quadrant pain at the site of his right inguinal hernia, that has wo rsened over the past several days, in particular over the past [address] scan of the abdomen/pelvis is concerning for possible incarcerated hernia, and free intraperitoneal air, suggestive of possible perforated viscus. Surgery has assessed the patient in the emergency department, and has asked that the patient be admitted to [facility] [place] [facility] for initial treatment Admission Exam Per Admitting Provider The patient is awake, alert and oriented 3, well developed and well nourished, normocephalic and atraumatic, lying in bed and in no acute distress. HEENT--PERRL, EOMI, mucous membranes and oropharynx mildly dry. Neck--supple. No JVD. No bruits. Thyroid normal, trachea midline, no adenopathy. Heart--normal S1 and S2. No murmurs, rubs or gallops. Lungs--clear bilaterally, no respiratory distress, no accessory muscle use. Abdomen--decreased bowel sounds, soft, tender right lower quadrant, right inguinal hernia. Extremities--no cyanosis or clubbing. No edema. There are good distal pulses b/l. Dermatologic--normal skin turgor, normal color, no abnormal lymph nodes, no saul h. Neurologic--cranial nerves II through XII grossly intact. Rheumatologic--limited exam due to groin pain Psychiatric--normal affect. Discharge Exam General: 88yo male sitting up in bed, son in room, wanting to be discharged today if able, NAD HEENT: head atraumatic, normocephalic, mmm, trachea midline Resp: even/unlabored no wheezing/rales, on room air 99% CV: RRR, no significant m/r/g, no pitting edema/calf tenderness GI: +BS throughout, soft, RLQ hernia present, reducible, no significant warmth/tenderness no peritoneal signs/rigidity : no bailey MSK/Neuro: nonfocal, answering questions appropriately, no confused Psych: AOx3, cooperative/pleasant with exam Discharge Plan Discharge Items Patient Disposition: Home - Self-Care Reason For Visit: INCARCERATED HERNIA, PERFORATED VISCUS, SINUS TACH Discharge Diagnosis: Perforated Viscous, Incarcerated Hernia Condition on Discharge: Fair Goals: You have been hospitalized for an acute medical problem. During your stay at [facility], we have made an effort to correct the problem that brought you to the hospital while keeping you as comfortable as possible. Medications were used to bring your condition under control and your discharge instructions will include directions for any medications you should take after leaving the hospital. Please make sure you see your Primary Care Provider as part of your follow up plan. Activity: As commented below Non-emergency contact: Primary Care Provider and Surgeon Call non-emergency contact if: you have any medication questions, your symptoms worsen, your pain is concerning for you and you have a fever Follow-up/Referrals: Jacqueline Manley DO [Physician] - (May call to schedule follow up with the surgeon in a few weeks to discuss elective repair of your right inguinal hernia) [facility] [Primary Care Provider] - Diet: Heart Healthy and Low Fiber Addtl Attending Provider Instructions: You have been hospitalized for abdominal pain and found to have incarcerated hernia (trapped bowel) and possible perforation and general surgery was consu lted and you were given IV fluids and antibiotics with bowel rest and hernia has reduced and this has been managed conservatively and you will continue antibiotics with Augmentin twice daily to complete the course. You should continue a low fiber diet at discharge for the next 1-2 weeks and advance as tolerated. Continue miralax over the counter stool softener/laxative once a day to keep your bowels regular/moving/prevent issues. Your Synthroid has been increased to 100mcg daily and you should have repeat testing with primary care in 4-6 weeks to see if further adjustments needed. This can help with constipation/fatigue/etc and hopefully increase will help with some symptoms as well. You should have follow up with Dr Manley outpatient for discussion of hernia repair in the future. Please follow up with primary care in the next 7-10 days to monitor your progress after hospitalization. Please return to the ER with any increased pain, fever, nausea/vomiting, increased redness/warmth from the hernia, or for any symptoms concerning for you. It has been a pleasure being a part of the medical team providing for you while you have been in the hospital. Take care! Pending Studies at Discharge: No Stand-Alone Forms: My [employer] [facility] [employer], Smoking Cessation Medications and DC Order Prescriptions: New levothyroxine 100 mcg capsule 100 mcg PO DAILY Qty: 30 0RF amoxicillin-pot clavulanate 500-125 mg tablet 1 tab PO BID 4 Days Qty: 8 0RF Continued SIMVASTATIN (ZOCOR) 40 mg tablet 80 mg PO QPM Qty: 0 Insulin Glargine (Lantus) VIAL 10 unit SC QAM Qty: 0 alfuzosin 10 mg tablet extended release 24 hr 10 mg PO HS clonazepam 0.5 mg tablet 0.5 mg PO HS Jardiance 25 mg tablet 12.5 mg PO DAILYBB PreserVision AREDS-2 1 cap PO BID Ozempic 1 mg/dose (4 mg/3 mL) pen injector 1 mg SUBCUT WK insulin aspart U-100 [Novolog FlexPen U-100 Insulin] 100 unit/mL (3 mL) insulin pen 10 unit SUBCUT DAILYBL insulin aspart U-100 [Novolog FlexPen U-100 Insulin] 100 unit/mL (3 mL) insulin pen 10 unit SUBCUT DAILYBD aspirin 81 mg Tablet,Chewable 81 mg PO DAILY insulin aspart U-100 [Novolog FlexPen U-100 Insulin] 100 unit/mL (3 mL) insulin pen 5 unit SUBCUT DAILYBB Discontinued LEVOTHYROXINE SODIUM 175 MCG tablet 88 mcg PO DAILY Qty: 0 INSULIN ASPART (NOVOLOG) 100 UNIT/ INJECTION 5 units SC DAILYBB Qty: 0 Patient Comments: SLIDING SCALE insulin glargine-yfgn 100 unit/mL (3 mL) insulin pen 10 unit SUBCUT DAILYBB Discharge Orders: Discharge Order (Routine); Ordered 06/27/24 Ordered By: Morenita Mercado/Other Patient Handouts: Low-Fiber Diet, Managing Type 2 Diabetes Admission Data Admit Date/Time: 06/25/24 05:36 Attending Provider: Johan Colon Admit Provider: Estiven Suarez Primary Care Provider: [facility] Other Providers: Jacqueline Manley; Estiven Suarez; [facility] Other Interventions: Discharge Summary Assessment (RN) Last Done: 06/27/24 13:04 Hospital Stay Data Consultations 06/25/24 04:54 ED Decision to Admit Stat 06/25/24 05:47 Consult General Surgery Routine Diagnostic Imagining Performed Abdomen/Pelvis CT 06/24/24 22:51 CR Exam(s): CT ABDOMEN + PELVIS With Contrast IV Amt: 93 ml optiray 320 EXAM: CT Abdomen and Pelvis With Intravenous Contrast CLINICAL HISTORY: Reason for exam: lower abd pain, hernia. TECHNIQUE: Axial computed tomography images of the abdomen and pelvis with intravenous contrast. CTDI is 8.88 mGy and DLP is 424.45 mGy-cm. Automated exposure control was utilized for the study. A dose lowering technique was utilized adhering to the principles of ALARA. CONTRAST: Patient received 93 ml optiray 320 of IV contrast COMPARISON: No relevant prior studies available. FINDINGS: Lung bases: No consolidation. The heart contains coronary artery calcifications. ABDOMEN: Liver: No mass. Gallbladder and bile ducts: No calcified stones. No ductal dilation. Pancreas: No mass. No ductal dilation. Spleen: No splenomegaly. Adrenals: No mass. Kidneys and ureters: No hydronephrosis. There is a 1.7 cm lucency noted in the right kidney. Stomach and bowel: The stomach is decompressed. The colon is distended containing air and stool. There are diverticula present on the colon. No significant inflammatory changes are seen. There is a right inguinal hernia containing a loop of small bowel. There are some inflammatory changes in the hernia sac. No evidence of bowel obstruction. PELVIS: Appendix: No findings to suggest acute appendicitis. Bladder: There is thickening of the urinary bladder wall.. Reproductive: The prostate gland is enlarged.. ABDOMEN and PELVIS: Intraperitoneal space: There is a small amount of free intraperitoneal air noted.. No significant fluid collection. Bones/joints: There are degenerative changes in the spine.. Soft tissues: There are areas of increased density noted in the subcutaneous tissues of the anterior abdominal wall. This is of uncertain etiology. Vasculature: There are extensive atherosclerotic changes. No abdominal aortic aneurysm. Lymph nodes: No enlarged lymph nodes. IMPRESSION: There is a small amount of free intraperitoneal air. This may be related to a perforated viscus. There is a right inguinal hernia containing a loop of small bowel. There are some inflammatory changes in the hernia sac. This suggests incarceration. No evidence of bowel obstruction. Diverticulosis. There is thickening of the urinary bladder wall. This may be due to hypertrophy. Cannot exclude a process such as cystitis. Prostate gland is enlarged. There is a possible right renal cyst. Communications: Call Doctor Pneumoperitoneum, new or unexpected Electronically signed by: Vishnu Liz MD 06/25/24 03:49 AM Discharge Instructions Given to Patient (Per Discharging Provider) You have been hospitalized for abdominal pain and found to have incarcerated hernia (trapped bowel) and possible perforation and general surgery was consulted and you were given IV fluids and antibiotics with bowel rest and hernia has reduced and this has been managed conservatively and you will continue antibiotics with Augmentin twice daily to complete the course. You should continue a low fiber diet at discharge for the next 1-2 weeks and advance as tolerated. Continue miralax over the counter stool softener/laxative once a day to keep your bowels regular/moving/prevent issues. Your Synthroid has been increased to 100mcg daily and you should have repeat testing with primary care in 4-6 weeks to see if further adjustments needed. This can help with constipation/fatigue/etc and hopefully increase will help with some symptoms as well. You should have follow up with Dr Manley outpatient for discussion of hernia repair in the future. Please follow up with primary care in the next 7-10 days to monitor your progress after hospitalization. Please return to the ER with any increased pain, fever, nausea/vomiting, increased redness/warmth from the hernia, or for any symptoms concerning for you. It has been a pleasure being a part of the medical team providing for you while you have been in the hospital. Take care! Supervising Physician Co-Signing Physician Notes The patient was not seen by me. The chart was reviewed. Case discussed with АННА Contreras. Agree with assessment and plan Total Time Total Time Spent Total Time Spent (In Minutes): 50 Coding Level of Care Code 80576 INP/OBS DISCH >30 MIN Diagnoses Perforated viscus R19.8 Incarcerated inguinal hernia K40.30 Diabetes E11.9 BPH (benign prostatic hyperplasia) N40.0 Hypothyroidism E03.9
[2024-06-27 11:43] VITALS: BP 160/80; PULSE 89; O2SAT 99
== END 2024-06-27 13:41 | disposition home or self-care (01) | DRG 393 ==
LOC: ED 22:29 → SUATTDRO 06-25 05:36 → EDINP 06-25 05:36 → 4W 06-25 14:08
DX: N32.89 Other specified disorders of bladder; N40.0 Benign prostatic hyperplasia without lower urinary tract symptoms; E03.9 Hypothyroidism, unspecified; N28.1 Cyst of kidney, acquired; Z79.899 Other long term (current) drug therapy; K40.30 Unilateral inguinal hernia, with obstruction, without gangrene, not specified as recurrent; Z79.84 Long term (current) use of oral hypoglycemic drugs; K63.1 Perforation of intestine (nontraumatic); Z79.82 Long term (current) use of aspirin; E11.9 Type 2 diabetes mellitus without complications; K59.00 Constipation, unspecified; E78.5 Hyperlipidemia, unspecified; Z79.4 Long term (current) use of insulin; Z88.8 Allergy status to other drugs, medicaments and biological substances; I10 Essential (primary) hypertension; Z79.890 Hormone replacement therapy; Z79.85 Long-term (current) use of injectable non-insulin antidiabetic drugs; Z87.891 Personal history of nicotine dependence; R94.6 Abnormal results of thyroid function studies